=== PATIENT | male | born 1940 | race Caucasian/White ===

== ENCOUNTER 2020-05-04 11:10 | Outpatient (REF) | payer BC, SELFPAY ==
--- NOTE | 2020-05-04 11:18 | XR_ITS ---
EXAMINATION: BILATERAL HAND X-RAY CLINICAL INFORMATION: Arthritis COMPARISON: None TECHNIQUE: 3 views each hand FINDINGS: Right: No fracture or dislocation is seen. There is arthritis at the first LONGTERM joint with joint space narrowing and osteophyte formation. There is mild arthritis at the IP joints and first MCP joint with small osteophytes. There is soft tissue arterial calcification. Left: No fracture or dislocation is seen. There is arthritis at the first LONGTERM joint with joint space narrowing and osteophyte formation. There is slight subluxation at the first LONGTERM joint. There is slight extension at the IP joint of the thumb. There is mild arthritis at the IP joints and first MCP joint with small osteophytes. There is soft tissue arterial calcification. 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
--- NOTE | 2020-05-04 11:18 | XR_ITS ---
EXAMINATION: BILATERAL HAND X-RAY CLINICAL INFORMATION: Arthritis COMPARISON: None TECHNIQUE: 3 views each hand FINDINGS: Right: No fracture or dislocation is seen. There is arthritis at the first PRISON joint with joint space narrowing and osteophyte formation. There is mild arthritis at the IP joints and first MCP joint with small osteophytes. There is soft tissue arterial calcification. Left: No fracture or dislocation is seen. There is arthritis at the first PRISON joint with joint space narrowing and osteophyte formation. There is slight subluxation at the first PRISON joint. There is slight extension at the IP joint of the thumb. There is mild arthritis at the IP joints and first MCP joint with small osteophytes. There is soft tissue arterial calcification. XR/XR hand RT 2V IMPRESSION: Bilateral arthritis at the first PRISON joints, first MCP joints and IP joints, left greater than right.
== END 2020-05-04 11:11 | disposition home or self-care (01) ==
LOC: HO.XRAY 11:10
PROVIDERS: PCP Internal Medicine; Visit Provider Internal Medicine
DX: M19.042 Primary osteoarthritis, left hand (principal); M19.041 Primary osteoarthritis, right hand; M79.642 Pain in left hand; M79.641 Pain in right hand
CPT/HCPCS: 73120

== ENCOUNTER 2020-06-26 17:17 | Outpatient (REF) | payer BC, SELFPAY | END 2020-06-26 17:18 | disposition home or self-care (01) | LOC: HO.LAB 17:17 | PROVIDERS: Visit Provider Internal Medicine | DX: Z20.828 Contact with and (suspected) exposure to other viral communicable diseases (principal) | CPT/HCPCS: 36415; C9803; U0003 ==

== ENCOUNTER 2020-07-10 10:53 | Outpatient (REF) | payer BC, SELFPAY ==
[2020-07-10 14:18] LABS: MANUAL DIFF FLAG NO
[2020-07-10 14:26] LABS: Basophils Percent Auto 0.2 % (0-2); Eosinophils Percent Auto 0.1 % (0-4); Hematocrit 44.6 % (42-52); Hemoglobin 14.6 g/dl (14.0-18.0); Imm Gran Abs Auto 0.07 X10*3/uL (0.00-0.03); Imm Gran Pct Auto 0.7 % (0.0-0.4); Lymphocytes Percent Auto 9.2 % (20-40); Mean Corpuscular HGB Conc 32.7 g/dl (31.0-36.0); Mean Corpuscular Hemoglobin 30.4 pg (27.0-33.0); Mean Corpuscular Volume 92.7 fL (80-98); Mean Platelet Volume 9.4 fL (9.4-12.4); Monocytes Absolute Auto 0.6 X10*3/uL (0.1-1.2); Monocytes Percent Auto 5.8 % (2-11); Neutrophils Absolute Auto 8.7 X10*3/uL (2.0-8.3); Platelet Count 268 X10*3/uL (160-400); Red Blood Count 4.81 X10*6/uL (4.60-5.80); Red Cell Distribution Width 14.6 % (11.0-16.0); White Blood Count 10.4 X10*3/uL (4.8-10.8)
[2020-07-10 14:36] LABS: Estimated Average Glucose 123 mg/dL; Hemoglobin A1c % 5.9 %
[2020-07-10 14:55] LABS: Creatinine Urine 102.24 mg/dL; Microalbum/Creatinine Ratio Ur 5.8 ug/mg cr
[2020-07-10 14:58] LABS: Alanine Aminotransferase 20 U/L (0-40); Alkaline Phosphatase 56 U/L (39-117); Anion Gap 15 (12-20); Aspartate Amino Transferase 16 U/L (5-37); Bilirubin Total 0.5 mg/dL (0.0-1.0); Blood Urea Nitrogen 23 mg/dL (9-16); C Reactive Protein 0.14 mg/dL (< or = 0.50); Calcium 9.1 mg/dL (8.4-10.2); Carbon Dioxide 29 mmol/L (22-29); Chloride 101 mmol/L (96-108); Estimated Glomerular Filt Rate > 60; Glucose Random 66 mg/dL (60-115); Potassium 4.1 mmol/l (3.3-5.1); Sodium 141 mmol/L (135-145); Total Protein 6.4 g/dL (6.5-8.0)
[2020-07-10 15:22] LABS: Vitamin D 25-OH Total 37.8 ng/mL (>30)
== END 2020-07-10 10:54 | disposition home or self-care (01) ==
LOC: HO.10HDL 10:53
PROVIDERS: Visit Provider Internal Medicine
DX: R73.03 Prediabetes (principal); I10 Essential (primary) hypertension; K21.9 Gastro-esophageal reflux disease without esophagitis; E55.9 Vitamin D deficiency, unspecified
CPT/HCPCS: 36415; 80053; 82043; 82306; 83036; 85025; 86140

== ENCOUNTER 2020-09-10 09:58 | Outpatient (REF) | payer BC, SELFPAY ==
--- NOTE | ~2020-09-10 | XR_ITS ---
EXAMINATION: XR ANKLE, LEFT CLINICAL INFORMATION: Swelling COMPARISON: None TECHNIQUE: AP, lateral, and mortise views of the left ankle. FINDINGS: Bone alignment is normal. No acute fracture or dislocation is seen. There are soft tissue ossifications inferior to the medial and lateral malleoli suggestive of changes related to old trauma. The ankle mortise is normal. There is soft tissue arterial calcification. XR/XR ankle LT min 3V IMPRESSION: Well-corticated soft tissue ossifications inferior to the medial and lateral malleolus suggestive of changes related to old trauma. Soft tissue arterial calcification.
[2020-09-10 13:45] LABS: MANUAL DIFF FLAG NO
[2020-09-10 13:55] LABS: Basophils Percent Auto 0.3 % (0-2); Eosinophils Percent Auto 0.2 % (0-4); Hematocrit 45.4 % (42-52); Hemoglobin 14.9 g/dl (14.0-18.0); Imm Gran Abs Auto 0.06 X10*3/uL (0.00-0.03); Imm Gran Pct Auto 0.5 % (0.0-0.4); Lymphocytes Absolute Auto 1.2 X10*3/uL (1.2-4.9); Lymphocytes Percent Auto 10.3 % (20-40); Mean Corpuscular HGB Conc 32.8 g/dl (31.0-36.0); Mean Corpuscular Hemoglobin 30.6 pg (27.0-33.0); Mean Corpuscular Volume 93.2 fL (80-98); Mean Platelet Volume 9.3 fL (9.4-12.4); Monocytes Absolute Auto 0.6 X10*3/uL (0.1-1.2); Monocytes Percent Auto 5.5 % (2-11); Neutrophils Absolute Auto 9.5 X10*3/uL (2.0-8.3); Neutrophils Percent Auto 83.2 % (45-73); Platelet Count 273 X10*3/uL (160-400); Red Blood Count 4.87 X10*6/uL (4.60-5.80); Red Cell Distribution Width 13.8 % (11.0-16.0); White Blood Count 11.4 X10*3/uL (4.8-10.8)
[2020-09-10 14:28] LABS: Anion Gap 16 (12-20); Blood Urea Nitrogen 15 mg/dL (9-16); C Reactive Protein 0.17 mg/dL (< or = 0.50); Calcium 9.5 mg/dL (8.4-10.2); Carbon Dioxide 29 mmol/L (22-29); Chloride 102 mmol/L (96-108); Estimated Glomerular Filt Rate > 60; Glucose Random 80 mg/dL (60-115); Potassium 4.1 mmol/L (3.3-5.1); Sodium 143 mmol/L (135-145); Uric Acid 6.1 mg/dL (3.4-7.0)
== END 2020-09-10 09:59 | disposition home or self-care (01) ==
LOC: HO.10HDL 09:58
PROVIDERS: Visit Provider Internal Medicine
DX: M35.3 Polymyalgia rheumatica (principal); M25.472 Effusion, left ankle
CPT/HCPCS: 36415; 73610; 80048; 84550; 85025; 86140

== ENCOUNTER 2020-09-20 10:06 | Outpatient (REF) | payer BC, SELFPAY ==
--- NOTE | ~2020-09-20 | MR_ITS ---
EXAMINATION: MRI ANKLE WITHOUT CONTRAST, LEFT CLINICAL INFORMATION: Left Achilles pain. Rule out tear. COMPARISON: X-ray left ankle 09/10/2020 TECHNIQUE: MRI of the ankle without contrast is performed in a 1.5 Rufina high-field scanner. FINDINGS: ACHILLES TENDON: Partial-thickness deep surface tear of the proximal Achilles tendon involving a segment approximately 1.1 cm in craniocaudal length. There is a coronally oriented tear extending superiorly within the substance of the more proximal tendon into the myotendinous region. Associated edema in this region. BONE/JOINTS: Mild 1st and 2nd tarsometatarsal joint arthritis. Mild talocrural joint arthritis. Chronic osseous fragments adjacent to the medial and lateral malleoli. No evidence of acute fracture. Small posterior subtalar joint effusion. MUSCLES/TENDONS: Medial flexor, peroneal, extensor tendons are intact. LIGAMENTS: The ATFL is not well visualized, with findings suggesting high-grade partial tear. Sprain posterior talofibular ligament. Tibiofibular, calcaneofibular ligaments are intact. Partial tear deep fibers deltoid ligament. PLANTAR FASCIA: Intact. SINUS TARSI: Cystic foci, probable ganglion cysts. TARSAL TUNNEL: No mass lesion. SUBCUTANEOUS SOFT TISSUES: Subcutaneous edema present. MR/MR ankle LT wo con IMPRESSION: 1. Partial-thickness tear of the proximal Achilles tendon. Partial-thickness deep surface tear of the proximal tendon measuring 1.1 cm craniocaudal, with a coronally oriented partial tear extending more superiorly within the tendon in the myotendinous region. 2. Mild talocrural joint arthritis. Mild 1st and 2nd tarsometatarsal joint arthritis. 3. Partial tear of the anterior talofibular, deep fibers deltoid ligaments, probably chronic. 4. Probable ganglion cysts in the sinus tarsi.
== END 2020-09-20 10:07 | disposition home or self-care (01) ==
LOC: HO.MRI 10:06
PROVIDERS: PCP Internal Medicine; Visit Provider Internal Medicine
DX: M76.62 Achilles tendinitis, left leg (principal)
CPT/HCPCS: 73721

== ENCOUNTER → 2020-10-02 12:50 | Outpatient (BNVA) | payer BC, SELFPAY | PROVIDERS: PCP Internal Medicine; Visit Provider Orthopaedic Surgery ==

== ENCOUNTER 2020-11-26 10:35 | Outpatient (REF) | payer BC, SELFPAY ==
[2020-11-26 13:37] LABS: MANUAL DIFF FLAG NO
[2020-11-26 13:45] LABS: Basophils Percent Auto 0.3 % (0-2); Eosinophils Percent Auto 0.1 % (0-4); Hematocrit 44.6 % (42-52); Hemoglobin 14.5 g/dl (14.0-18.0); Imm Gran Abs Auto 0.07 X10*3/uL (0.00-0.03); Imm Gran Pct Auto 0.7 % (0.0-0.4); Lymphocytes Percent Auto 9.2 % (20-40); Mean Corpuscular HGB Conc 32.5 g/dl (31.0-36.0); Mean Corpuscular Hemoglobin 30.5 pg (27.0-33.0); Mean Corpuscular Volume 93.9 fL (80-98); Monocytes Absolute Auto 0.8 X10*3/uL (0.1-1.2); Monocytes Percent Auto 7.9 % (2-11); Neutrophils Absolute Auto 8.6 X10*3/uL (2.0-8.3); Neutrophils Percent Auto 81.8 % (45-73); Platelet Count 264 X10*3/uL (160-400); Red Blood Count 4.75 X10*6/uL (4.60-5.80); Red Cell Distribution Width 13.9 % (11.0-16.0); White Blood Count 10.5 X10*3/uL (4.8-10.8)
[2020-11-26 13:59] LABS: Alanine Aminotransferase 23 U/L (0-40); Albumin Level 4.1 g/dL (3.5-5.0); Alkaline Phosphatase 49 U/L (39-117); Anion Gap 14 (12-20); Aspartate Amino Transferase 19 U/L (5-37); Bilirubin Total 0.7 mg/dL (0.0-1.0); Blood Urea Nitrogen 14 mg/dL (9-16); C Reactive Protein 0.16 mg/dL (< or = 0.50); Calcium 9.6 mg/dL (8.4-10.2); Carbon Dioxide 28 mmol/L (22-29); Chloride 103 mmol/L (96-108); Estimated Glomerular Filt Rate > 60; Glucose Random 89 mg/dL (60-115); Potassium 4.2 mmol/L (3.3-5.1); Sodium 141 mmol/L (135-145); Total Protein 6.4 g/dL (6.5-8.0)
== END 2020-11-26 10:36 | disposition home or self-care (01) ==
LOC: HO.10HDL 10:35
PROVIDERS: Visit Provider Internal Medicine
DX: I10 Essential (primary) hypertension (principal); M35.3 Polymyalgia rheumatica
CPT/HCPCS: 36415; 80053; 85025; 86140

== ENCOUNTER 2020-12-03 06:28 | Day surgery (SDC) | payer BC, SELFPAY ==
[2020-11-28 12:56] VITALS: BMI 56.9
--- NOTE | 2020-11-29 11:57 | HO.ANESPROP2 ---
Documented by User: Suzanne Brunson 11/29/20 11:58 HPI - Anesthesia Eval Consult details Narrative: 80yo M for Colonoscopy Daily prednisone for PMR PMFSH Active Problems Active Problems: All Active Problems (Updated 11/28/20 @ 12:59 by Heaven Powell) Achilles tendinitis, left leg (Acute) Past Medical History Medical History Acid reflux High cholesterol History of BPH Hypertension Polymyalgia rheumatica Surgical History Surgical History H/O colonoscopy History of knee surgery History of prostate surgery Social History Social History (Updated 10/02/20 @ 13:04 by Sita Woods) Patient Tobacco Use Status: Tobacco use Unknown Use of substances other than those prescribed or required for medical reasons: No Advance Directives Information Provided: No Current occupational status: employed Current occupation: right handed/accounting worker Meds Allergies Allergy/AdvReac Type Severity Reaction Status Date / Time No Known Allergies Allergy Verified 10/02/20 13:00 Home Medications Medication Instructions Recorded Confirmed Last Taken Type aspirin 81 mg chewable tablet 81 mg PO DAILY 10/02/20 12/03/20 11/26/20 History famotidine 20 mg tablet 20 mg PO DAILY 10/02/20 11/28/20 Unknown History hydrochlorothiazide 12.5 mg capsule 12.5 mg PO DAILY 10/02/20 11/28/20 Unknown History olmesartan 1 tab PO DAILY 11/28/20 11/28/20 Unknown History pravastatin 1 tab PO DAILY 11/28/20 11/28/20 Unknown History prednisone 1 tab PO DAILY 11/28/20 11/28/20 Unknown History Exam Exam Date and Time: November 29, 2020 1157 Height,Weight and Vital Signs: Height 5 ft 7 in Weight 165 kg Pertinent Lab Results Pertinent Lab Results: Laboratory Tests 11/26/20 11/26/20 10:40 10:40 WBC 10.5 Hgb 14.5 Hct 44.6 Plt Count 264 Sodium 141 Potassium 4.2 Chloride 103 Carbon Dioxide 28 BUN 14 Creatinine 0.98 Assessment and Plan Assessment Anesthesia Assessment: Chart Reviewed Documented by User: Andressa Schuster 12/03/20 07:20 [facility] Past Medical History Medical History Acid reflux High cholesterol History of BPH Hypertension Polymyalgia rheumatica Surgical History Surgical History H/O colonoscopy History of knee surgery History of prostate surgery Social History Social History (Updated 10/02/20 @ 13:04 by Sita Woods) Patient Tobacco Use Status: Tobacco use Unknown Use of substances other than those prescribed or required for medical reasons: No Advance Directives Information Provided: No Current occupational status: employed Current occupation: right handed/accounting worker Meds Allergies Allergy/AdvReac Type Severity Reaction Status Date / Time No Known Allergies Allergy Verified 10/02/20 13:00 Home Medications Medication Instructions Recorded Confirmed Last Taken Type aspirin 81 mg chewable tablet 81 mg PO DAILY 10/02/20 12/03/20 11/26/20 History famotidine 20 mg tablet 20 mg PO DAILY 10/02/20 11/28/20 Unknown History hydrochlorothiazide 12.5 mg capsule 12.5 mg PO DAILY 10/02/20 11/28/20 Unknown History olmesartan 1 tab PO DAILY 11/28/20 11/28/20 Unknown History pravastatin 1 tab PO DAILY 11/28/20 11/28/20 Unknown History prednisone 1 tab PO DAILY 11/28/20 11/28/20 Unknown History Exam Airway Mallampati Class: III (Caps multiple katerally) TM Dist: >3cm Neck ROM: Full Heart: rrr Lungs: cta Assessment and Plan Assessment Anesthesia Assessment: Anesthesia Plan Discussed and Chart Reviewed Final Anesthetic Review NPO: Yes ASA Class: II Final Preanesthetic Review: No Changes in Pt Med Stat and Consent Obtained/Reviewed Patient Risk: Intermediate Procedure Risk: Intermediate Anesthetic Plan Anesthetic Plan: MAC: Disposition: Standard PACU
[2020-12-03 07:18] VITALS: BMI 24.9
[2020-12-03 07:19] VITALS: BP 163/90; PULSE 73; RESP 16; TEMP 36.2; O2SAT 95
[2020-12-03] MEDS: Lactated Ringers 1,000 ML 100 ML IVCONT (07:22)
[2020-12-03 08:33] VITALS: BP 144/84; PULSE 64; RESP 16; TEMP 36.1; O2SAT 96
--- NOTE | 2020-12-03 08:37 | P.BOP_ITS ---
Brief Operative Note Date of Service: 12/03/20 Pre-op diagnosis: Screening Post-op diagnosis: other (Colon polyp, Diverticulosis) Procedure: Colonoscopy to the cecum with biopsy and removal of polyp Surgeon: Anthony Strickland Anesthesia: MAC Was an Partnership Development Manager used for this Procedure?: No Estimated blood loss (mL): 4.0 Pathology: other (A. Cecal polyp) Condition: stable Disposition: PACU
[2020-12-03 08:45] VITALS: BP 146/85; PULSE 67; RESP 16; O2SAT 95
[2020-12-03 09:00] VITALS: BP 147/87; PULSE 60; RESP 16; TEMP 36.1; O2SAT 96
--- NOTE | 2020-12-07 10:56 | OP_ITS ---
SURGEON: Anthony Strickland MD INDICATIONS: The patient presents for evaluation of personal history of tubular adenoma of the colon and colorectal cancer screening. Full consent has been obtained from him for this, including risks of bleeding and perforation. PREOPERATIVE DIAGNOSIS: POSTOPERATIVE DIAGNOSIS: PROCEDURE PERFORMED: Colonoscopy to cecum with biopsy and removal of polyp. ESTIMATED BLOOD LOSS: COMPLICATIONS: ANESTHESIA: Monitored anesthesia care. ASSISTANTS: SPECIMENS: PREOPERATIVE DIAGNOSES: Colorectal cancer screening and personal history of tubular adenoma of the colon. POSTOPERATIVE DIAGNOSES: Colorectal cancer screening and personal history of tubular adenoma of the colon, small colon polyp, diverticulosis, and minimal internal hemorrhoids. DESCRIPTION OF PROCEDURE: The patient was placed in the left lateral decubitus position. The digital rectal exam revealed no abnormalities. The Olympus video pediatric colonoscope was entered into the rectum and advanced easily to the cecum. Once in the cecum, I did identify normal-appearing cecal pouch other than a 3 mm polyp in the cecum, which was biopsied and completely removed with cold biopsy forceps. The remainder of the cecum including the appendiceal orifice was visualized and appeared normal. The ileocecal valve appeared normal. The scope was slowly withdrawn assessing all mucosal surfaces carefully. Preparation was excellent. I did not visualize any sign of other polyps, colitis, nor angiodysplasia. There were various portions of the colonic mucosa that had some superficial irritation consistent with that from the prep, but this did not appear to represent colitis. There was a moderate amount of sigmoid diverticulosis. In the rectum, scope was retroflexed visualizing normal rectal mucosa and no pathology. The scope was straightened out and withdrawn from the patient. He tolerated procedure well and was returned to the recovery area in stable condition. IMPRESSION: 1. Small colon polyp, status post biopsy and removal. 2. Diverticulosis. PLAN: The results of the biopsy will be checked. Given these minimal findings and his age, I do not think he will need any further colonoscopies in the future. He will see me on a p.r.n. basis otherwise. Anthony Strickland MD RMLilliam/ALL / [phone]
== END 2020-12-03 09:46 | disposition home or self-care (01) ==
PROVIDERS: PCP Internal Medicine; Visit Provider Internal Medicine
PROC: 0DJD8ZZ Inspection of Lower Intestinal Tract, Via Natural or Artificial Opening Endoscopic (ICD-10-PCS; CPT 45378; principal; 2020-12-03 07:30)
DX: Z12.11 Encounter for screening for malignant neoplasm of colon (principal); D12.0 Benign neoplasm of cecum; K57.30 Diverticulosis of large intestine without perforation or abscess without bleeding; Z86.010 Personal history of colon polyps; Z80.0 Family history of malignant neoplasm of digestive organs; I10 Essential (primary) hypertension; M35.3 Polymyalgia rheumatica; Z79.52 Long term (current) use of systemic steroids; Z79.82 Long term (current) use of aspirin; Z79.899 Other long term (current) drug therapy
CPT/HCPCS: 45380; 88305

== ENCOUNTER 2021-01-17 07:41 | Outpatient (REF) | payer BC, SELFPAY ==
[2021-01-17 10:27] LABS: MANUAL DIFF FLAG NO
[2021-01-17 10:43] LABS: Basophils Percent Auto 0.5 % (0-2); Eosinophils Absolute Auto 0.1 X10*3/uL (0.0-0.4); Eosinophils Percent Auto 0.6 % (0-4); Hematocrit 43.9 % (42-52); Hemoglobin 14.3 g/dl (14.0-18.0); Imm Gran Abs Auto 0.04 X10*3/uL (0.00-0.03); Imm Gran Pct Auto 0.5 % (0.0-0.4); Lymphocytes Absolute Auto 1.7 X10*3/uL (1.2-4.9); Lymphocytes Percent Auto 20.1 % (20-40); Mean Corpuscular HGB Conc 32.6 g/dl (31.0-36.0); Mean Corpuscular Hemoglobin 30.7 pg (27.0-33.0); Mean Corpuscular Volume 94.2 fL (80-98); Mean Platelet Volume 9.2 fL (9.4-12.4); Monocytes Absolute Auto 0.8 X10*3/uL (0.1-1.2); Monocytes Percent Auto 9.4 % (2-11); Neutrophils Absolute Auto 5.9 X10*3/uL (2.0-8.3); Neutrophils Percent Auto 68.9 % (45-73); Platelet Count 265 X10*3/uL (160-400); Red Blood Count 4.66 X10*6/uL (4.60-5.80); White Blood Count 8.5 X10*3/uL (4.8-10.8)
[2021-01-17 10:54] LABS: Alanine Aminotransferase 23 U/L (0-40); Alkaline Phosphatase 58 U/L (39-117); Anion Gap 14 (12-20); Aspartate Amino Transferase 19 U/L (5-37); Bilirubin Total 0.7 mg/dL (0.0-1.0); Blood Urea Nitrogen 17 mg/dL (9-16); Calcium 9.2 mg/dL (8.4-10.2); Carbon Dioxide 29 mmol/L (22-29); Chloride 104 mmol/L (96-108); Cholesterol 220 mg/dL; Estimated Glomerular Filt Rate > 60; Glucose Fasting 84 mg/dL (60-99); HDL Cholesterol 86 mg/dL; LDL Cholesterol Calculated 114 mg/dl; Potassium 4.2 mmol/L (3.3-5.1); Sodium 143 mmol/L (135-145); Total Protein 6.2 g/dL (6.5-8.0); Triglycerides 104 mg/dL
[2021-01-17 11:15] LABS: Prostate Specific Antigen Scr 1.83 ng/mL (<0.05-4.0)
== END 2021-01-17 07:42 | disposition home or self-care (01) ==
LOC: HO.10HDL 07:41
PROVIDERS: PCP Internal Medicine; Visit Provider Internal Medicine
DX: Z12.5 Encounter for screening for malignant neoplasm of prostate (principal); I10 Essential (primary) hypertension; E78.00 Pure hypercholesterolemia, unspecified; K21.9 Gastro-esophageal reflux disease without esophagitis; M35.3 Polymyalgia rheumatica
CPT/HCPCS: 36415; 80053; 80061; 84153; 85025

== ENCOUNTER 2021-01-18 11:00 | Outpatient (RCR) | payer BC, SELFPAY ==
--- NOTE | 2020-12-14 14:36 | MHC.PT.EP ---
[facility] [place] Office [place] Office [place] Office [address] [phone] F: [phone] F: [phone] F: [phone] F: [phone] Physical Therapy Plan of Care Date of Evaluation: Date of Surgery: N/A Diagnosis: L achilles tendinitis Assessment: Pt is a 80yo M who had pain in L achilles in August, had MRI 09/20/20 which revealed a partial tear. He was seen by Ortho who recommended ROM, soft tissue work and strengthening. He presents today (about 12 weeks post MRI) without pain, however has current impairments in ROM, strength, muscle length, balance, and proper body mechanics. He is limited functionally by prolonged ambulation, squatting, ascending/descending flight of stairs and golf. He is a good candidate for skilled PT services to improve strength, endurance, and to prevent risk of re-injury. Frequency and Duration: The patient will be seen 2x/week, 3 weeks Short Term Goals: Pt will be I with HEP to promote self management of symptoms Pt will improve L DF to 5 degrees to improve gait mechanics Alf Goals: Pt will achieve full strength and ROM Pt will ascend/descend 1 flight of stairs with reciprocal gait pattern without pain Treatment Plan: Modalities to reduce pain, spasms and effusion. Manual therapy to restore motion and function. Therapeutic exercise to improve strength and flexibility. Neuromuscular re-education for posture and balance. Therapeutic activities to return to functional activities of daily living. Electronically signed by: Brittanie Kumar, PT, DPT Please sign and return to therapist. Thank you for your referral.
--- NOTE | 2021-01-31 15:10 | MHC.PT.DC ---
[facility] [place] Office [place] Office [place] Office [address] [phone] F: [phone] F: [phone] F: [phone] F: [phone] Physical Therapy Discharge Report Diagnosis: L achilles tendinitis Date of Surgery: N/A Date of Evaluation: 12/14/20 Date of Discharge: Treatments to Date: 10 Cancellations to Date: 1 No Shows to Date: Discharge Status: Achieved Goals Improved Function Independent with HEP Discharge Summary: Pt's last attended appointment was 01/18/21 and he cancelled the following appointment as his pain has resolved and he has returned to his previous level of functional activities. Communicated with pt on the phone today, 01/31/21, and pt reports he continues to do well without pain. Pt is being D/C from skilled PT services at this time. Electronically signed by: Brittanie Kumar, PT, DPT Please sign and return to therapist. Thank you for your referral.
== END 2021-01-31 15:10 | disposition home or self-care (01) ==
LOC: HO.PT 11:00
PROVIDERS: PCP Internal Medicine; Visit Provider Orthopaedic Surgery
DX: M76.62 Achilles tendinitis, left leg (principal)
CPT/HCPCS: 97035; 97110; 97112; 97140; 97161; 97530

== ENCOUNTER → 2021-03-21 14:56 | Outpatient (BNVA) | payer BC, SELFPAY | PROVIDERS: PCP Internal Medicine; Visit Provider Physician Assistant ==

== ENCOUNTER 2021-05-01 13:52 | Outpatient (REF) | payer BC, SELFPAY ==
[2021-05-01 14:48] LABS: Influenza A PCR NEGATIVE (Negative); Influenza B PCR NEGATIVE (Negative); Resp Syncy Virus RNA Qual PCR NEGATIVE (Negative); SARS COV2 PCR INHOUSE NEGATIVE (Negative)
== END 2021-05-01 13:53 | disposition home or self-care (01) ==
LOC: HO.LNP 13:52
PROVIDERS: Visit Provider Internal Medicine
DX: R05.9 Cough, unspecified (principal); R09.89 Other specified symptoms and signs involving the circulatory and respiratory systems; J02.9 Acute pharyngitis, unspecified; Z20.822 Contact with and (suspected) exposure to COVID-19
CPT/HCPCS: 0241U

== ENCOUNTER 2021-05-02 10:55 | Outpatient (REF) | payer BC, SELFPAY ==
--- NOTE | ~2021-05-02 | XR_ITS ---
EXAMINATION: XR CHEST CLINICAL INFORMATION: Cough. Congestion. COMPARISON: Previous chest x-ray September 2014 TECHNIQUE: Two views of the chest were obtained. FINDINGS: The cardiac and mediastinal contours are stable. The lungs are clear. There is no pleural effusion or pneumothorax. There is slight elevation of the right hemidiaphragm. There are mild degenerative changes of the spine. XR/XR chest 2V IMPRESSION: No evidence for acute disease in the chest.
== END 2021-05-02 10:56 | disposition home or self-care (01) ==
LOC: HO.XRAY 10:55
PROVIDERS: PCP Internal Medicine; Visit Provider Internal Medicine
DX: R05.9 Cough, unspecified (principal); R09.89 Other specified symptoms and signs involving the circulatory and respiratory systems
CPT/HCPCS: 71046

== ENCOUNTER 2021-09-04 10:09 | Outpatient (REF) | payer BC, SELFPAY ==
--- NOTE | ~2021-09-04 | MR_ITS ---
EXAMINATION: MR KNEE WITHOUT CONTRAST, LEFT CLINICAL INFORMATION: Knee pain. History meniscus tear.. Patient reports meniscal repair 23 years ago. COMPARISON: None TECHNIQUE: MRI of the knee without contrast was performed using routine sequences on a high-field scanner. FINDINGS: MENISCI: Medial Meniscus: Small diminutive posterior horn and body. This could represent postsurgical result, age indeterminate tearing, or a combination of these. Lateral Meniscus: Degenerative tearing of the posterior root/central posterior horn. LIGAMENTS: Cruciate: The ACL is not visualized, suggestive of chronic full-thickness tear. Increased T2 signal in the PCL, from mucoid degeneration plus/minus sprain/partial tear. Collateral: Intact EXTENSOR MECHANISM: Intact ARTICULAR CARTILAGE/BONE: Patellofemoral Compartment: Marginal osteophytes. Central trochlear osteophyte with overlying cartilage thinning. Cartilage thinning in the medial trochlea. Medial Compartment: High-grade/full-thickness cartilage loss in the weightbearing compartment, subchondral edema. Joint space loss. Marginal osteophytes. Degenerative cyst/edema underlying the tibial spines. Lateral Compartment: Full-thickness cartilage loss in the medial aspect of the lateral femoral condyle and the posterior medial tibial plateau with subchondral edema. Marginal osteophytes. JOINT FLUID AND BURSAE: Small effusion. Small Bartlett's cyst with loose bodies and synovitis. Mild medial gastrocnemius tendinosis. MR/MR knee LT wo con IMPRESSION: 1. Abnormal morphology of the posterior horn and body of the medial meniscus, could reflect postsurgical result, age-indeterminate irregular tearing with resulting diminutive meniscal tissue, or a combination of these. Correlate with surgical history. 2. Degenerative tearing of the posterior root/central posterior horn of the lateral meniscus. 3. ACL full-thickness tear, likely chronic. 4. Mucoid degeneration plus/minus sprain/partial tear PCL. 5. Severe medial compartment, mild to moderate lateral and patellofemoral compartment arthritis. 6. Small effusion. Small Bartlett's cyst with loose bodies and synovitis. 7. Mild proximal medial gastrocnemius tendinosis.
== END 2021-09-04 10:10 | disposition home or self-care (01) ==
LOC: HO.MRI 10:09
PROVIDERS: PCP Internal Medicine; Visit Provider Internal Medicine
DX: M25.562 Pain in left knee (principal); M23.202 Derangement of unspecified lateral meniscus due to old tear or injury, unspecified knee
CPT/HCPCS: 73721

== ENCOUNTER 2021-12-25 07:32 | Outpatient (REF) | payer BC, SELFPAY ==
[2021-12-25 10:36] LABS: MANUAL DIFF FLAG NO
[2021-12-25 10:44] LABS: Basophils Percent Auto 0.5 % (0-2); Eosinophils Percent Auto 0.5 % (0-4); Hematocrit 44.2 % (42.0-52.0); Hemoglobin 14.9 g/dl (14.0-18.0); Imm Gran Abs Auto 0.04 X10*3/uL (0.00-0.03); Imm Gran Pct Auto 0.5 % (0.0-0.4); Lymphocytes Absolute Auto 1.9 X10*3/uL (1.2-4.9); Lymphocytes Percent Auto 25.6 % (20-40); Mean Corpuscular HGB Conc 33.7 g/dl (31.0-36.0); Mean Corpuscular Hemoglobin 31.4 pg (27.0-33.0); Mean Corpuscular Volume 93.1 fL (80.0-98.0); Monocytes Absolute Auto 0.8 X10*3/uL (0.1-1.2); Monocytes Percent Auto 10.9 % (2-11); Neutrophils Absolute Auto 4.7 x10*3/uL (2.0-8.3); Platelet Count 258 X10*3/uL (160-400); Red Blood Count 4.75 X10*6/uL (4.60-5.80); Red Cell Distribution Width 13.8 % (11.0-16.0); White Blood Count 7.5 X10*3/uL (4.8-10.8)
[2021-12-25 10:47] LABS: Appearance Urine CLEAR; Color Urine YELLOW; Glucose Urine UA NEG (NEG); Leukocyte Esterase Urine NEG (NEG); Nitrite Urine NEG (NEG); Urine Blood NEG (NEG); Urine Ketones NEG (NEG); Urine Protein NEG (NEG-TRACE)
[2021-12-25 11:03] LABS: Alanine Aminotransferase 19 U/L (0-40); Albumin Level 3.9 g/dL (3.5-5.0); Alkaline Phosphatase 55 U/L (39-117); Anion Gap 12 (12-20); Aspartate Amino Transferase 19 U/L (5-37); Bilirubin Total 0.7 mg/dL (0.0-1.0); Blood Urea Nitrogen 13 mg/dL (9-16); C Reactive Protein 0.12 mg/dL (< or = 0.50); Calcium 9.2 mg/dL (8.4-10.2); Carbon Dioxide 31 mmol/L (22-29); Chloride 102 mmol/L (96-108); Cholesterol 212 mg/dL; Estimated Glomerular Filt Rate > 60; Glucose Fasting 79 mg/dL (60-99); HDL Cholesterol 91 mg/dL; LDL Cholesterol Calculated 103 mg/dl; Potassium 3.9 mmol/L (3.3-5.1); Sodium 141 mmol/L (135-145); Total Protein 6.1 g/dL (6.5-8.0); Triglycerides 90 mg/dL
[2021-12-25 11:13] LABS: Prostate Specific Antigen Scr 2.02 ng/mL (<0.05-4.0)
== END 2021-12-25 07:33 | disposition home or self-care (01) ==
LOC: HO.10HDL 07:32
PROVIDERS: Visit Provider Internal Medicine
DX: I10 Essential (primary) hypertension (principal); E78.00 Pure hypercholesterolemia, unspecified; M35.3 Polymyalgia rheumatica; K21.9 Gastro-esophageal reflux disease without esophagitis; R35.1 Nocturia; Z12.5 Encounter for screening for malignant neoplasm of prostate
CPT/HCPCS: 36415; 80053; 80061; 81003; 84153; 85025; 86140

== ENCOUNTER 2022-04-10 09:47 | Outpatient (REF) | payer BC, SELFPAY ==
--- NOTE | ~2022-04-10 | XR_ITS ---
EXAMINATION: XR TEMPOROMANDIBULAR JOINT, BILATERAL CLINICAL INFORMATION: Left jaw pain COMPARISON: None TECHNIQUE: 5 views of the temporomandibular joints including bilateral open and closed mouth views FINDINGS: No fracture or dislocation. Symmetric movement of the temporomandibular joints when opening the mouth. Normal joint spaces. Visualized paranasal sinuses are clear. There are degenerative changes of the visualized cervical spine. XR/XR TMJ BI IMPRESSION: Normal-appearing temporomandibular joints.
== END 2022-04-10 09:48 | disposition home or self-care (01) ==
LOC: HO.XRAY 09:47
PROVIDERS: PCP Internal Medicine; Visit Provider Internal Medicine
DX: R68.84 Jaw pain (principal)
CPT/HCPCS: 70330

== ENCOUNTER 2023-02-11 07:42 | Outpatient (REF) | payer BC, SELFPAY ==
[2023-02-11 10:15] LABS: MANUAL DIFF FLAG NO
[2023-02-11 10:19] LABS: Appearance Urine Clear; Color Urine Yellow; Glucose Urine UA Negative (Negative); Leukocyte Esterase Urine Negative (Negative); Nitrite Urine Negative (Negative); Urine Blood Negative (Negative); Urine Ketones Negative (Negative); Urine Protein Negative (Neg-Trace)
[2023-02-11 10:21] LABS: Basophils Percent Auto 0.5 % (0-2); Eosinophils Absolute Auto 0.1 X10*3/uL (0.0-0.4); Eosinophils Percent Auto 0.8 % (0-4); Hematocrit 46.8 % (42.0-52.0); Hemoglobin 15.7 g/dl (14.0-18.0); Imm Gran Abs Auto 0.04 X10*3/uL (0.00-0.03); Imm Gran Pct Auto 0.6 % (0.0-0.4); Lymphocytes Absolute Auto 1.7 X10*3/uL (1.2-4.9); Mean Corpuscular HGB Conc 33.5 g/dl (31.0-36.0); Mean Corpuscular Hemoglobin 31.2 pg (27.0-33.0); Monocytes Absolute Auto 0.8 X10*3/uL (0.1-1.2); Monocytes Percent Auto 12.2 % (2-11); Neutrophils Absolute Auto 3.8 x10*3/uL (2.0-8.3); Neutrophils Percent Auto 58.9 % (45-73); Platelet Count 261 X10*3/uL (160-400); Red Blood Count 5.03 X10*6/uL (4.60-5.80); Red Cell Distribution Width 13.9 % (11.0-16.0); White Blood Count 6.4 X10*3/uL (4.8-10.8)
[2023-02-11 10:41] LABS: Alanine Aminotransferase 19 U/L (0-40); Albumin Level 3.9 g/dL (3.5-5.0); Alkaline Phosphatase 60 U/L (39-117); Anion Gap 11 (12-20); Aspartate Amino Transferase 23 U/L (5-37); Bilirubin Total 0.7 mg/dL (0.0-1.0); Blood Urea Nitrogen 13 mg/dL (9-16); Calcium 9.6 mg/dL (8.4-10.2); Carbon Dioxide 31 mmol/L (22-29); Chloride 103 mmol/L (96-108); Cholesterol 219 mg/dL (<200); Estimated Glomerular Filt Rate > 60; Glucose Fasting 87 mg/dL (60-99); HDL Cholesterol 97 mg/dL (>40); LDL Cholesterol Calculated 106 mg/dL (<100); Potassium 4.1 mmol/L (3.3-5.1); Sodium 141 mmol/L (135-145); Total Protein 6.6 g/dL (6.5-8.0); Triglycerides 82 mg/dL (<150)
[2023-02-11 11:03] LABS: Prostate Specific Antigen Scr 1.98 ng/mL (<0.05-4.0)
== END 2023-02-11 07:43 | disposition home or self-care (01) ==
LOC: HO.10HDL 07:42
PROVIDERS: Visit Provider Internal Medicine
DX: Z12.5 Encounter for screening for malignant neoplasm of prostate (principal); I10 Essential (primary) hypertension; R35.1 Nocturia; E78.00 Pure hypercholesterolemia, unspecified; M19.90 Unspecified osteoarthritis, unspecified site
CPT/HCPCS: 36415; 80053; 80061; 81003; 84153; 85025

== ENCOUNTER 2023-05-08 10:07 | Outpatient (REF) | payer BC, SELFPAY ==
[2023-05-08 10:38] LABS: MANUAL DIFF FLAG NO
[2023-05-08 10:41] LABS: Basophils Percent Auto 0.4 % (0-2); Eosinophils Percent Auto 0.1 % (0-4); Hematocrit 46.4 % (42.0-52.0); Hemoglobin 15.3 g/dl (14.0-18.0); Imm Gran Abs Auto 0.04 X10*3/uL (0.00-0.03); Imm Gran Pct Auto 0.5 % (0.0-0.4); Lymphocytes Absolute Auto 1.1 X10*3/uL (1.2-4.9); Lymphocytes Percent Auto 13.3 % (20-40); Mean Corpuscular Hemoglobin 31.2 pg (27.0-33.0); Mean Corpuscular Volume 94.5 fL (80.0-98.0); Mean Platelet Volume 8.6 fL (9.4-12.4); Monocytes Absolute Auto 0.8 X10*3/uL (0.1-1.2); Monocytes Percent Auto 9.3 % (2-11); Neutrophils Absolute Auto 6.2 x10*3/uL (2.0-8.3); Neutrophils Percent Auto 76.4 % (45-73); Platelet Count 255 X10*3/uL (160-400); Red Blood Count 4.91 X10*6/uL (4.60-5.80); Red Cell Distribution Width 13.8 % (11.0-16.0); White Blood Count 8.1 X10*3/uL (4.8-10.8)
[2023-05-08 10:55] LABS: Anion Gap 11 (12-20); Blood Urea Nitrogen 17 mg/dL (9-16); Calcium 9.4 mg/dL (8.4-10.2); Carbon Dioxide 29 mmol/L (22-29); Chloride 103 mmol/L (96-108); Estimated Glomerular Filt Rate > 60; Glucose Random 83 mg/dL (60-115); Sodium 139 mmol/L (135-145)
== END 2023-05-08 10:08 | disposition home or self-care (01) ==
LOC: HO.10HDL 10:07
PROVIDERS: Visit Provider Internal Medicine
DX: Z01.818 Encounter for other preprocedural examination (principal); I10 Essential (primary) hypertension; M35.3 Polymyalgia rheumatica
CPT/HCPCS: 36415; 80048; 85025

== ENCOUNTER 2023-10-30 10:07 | Outpatient (REF) | payer BC, SELFPAY ==
[2023-10-30 10:53] LABS: MANUAL DIFF FLAG NO
[2023-10-30 11:07] LABS: Basophils Percent Auto 0.4 % (0-2); Eosinophils Percent Auto 0.3 % (0-4); Hemoglobin 15.1 g/dl (14.0-18.0); Imm Gran Abs Auto 0.04 X10*3/uL (0.00-0.03); Imm Gran Pct Auto 0.5 % (0.0-0.4); Lymphocytes Percent Auto 13.1 % (20-40); Mean Corpuscular HGB Conc 33.6 g/dl (31.0-36.0); Mean Corpuscular Hemoglobin 31.1 pg (27.0-33.0); Mean Corpuscular Volume 92.8 fL (80.0-98.0); Mean Platelet Volume 8.8 fL (9.4-12.4); Monocytes Absolute Auto 0.7 X10*3/uL (0.1-1.2); Neutrophils Absolute Auto 6.1 x10*3/uL (2.0-8.3); Neutrophils Percent Auto 76.7 % (45-73); Platelet Count 250 X10*3/uL (160-400); Red Blood Count 4.85 X10*6/uL (4.60-5.80); Red Cell Distribution Width 13.8 % (11.0-16.0); White Blood Count 7.9 X10*3/uL (4.8-10.8)
[2023-10-30 11:58] LABS: Alanine Aminotransferase 19 U/L (0-40); Albumin Level 3.9 g/dL (3.5-5.0); Alkaline Phosphatase 65 U/L (39-117); Anion Gap 14 (12-20); Aspartate Amino Transferase 21 U/L (5-37); Bilirubin Total 0.4 mg/dL (0.0-1.0); Blood Urea Nitrogen 15 mg/dL (9-16); C Reactive Protein 0.29 mg/dL (< or = 0.50); Calcium 9.6 mg/dL (8.4-10.2); Carbon Dioxide 27 mmol/L (22-29); Chloride 103 mmol/L (96-108); Estimated Glomerular Filt Rate > 60; Glucose Random 87 mg/dL (60-115); Potassium 3.9 mmol/L (3.3-5.1); Sodium 140 mmol/L (135-145); Total Protein 6.5 g/dL (6.5-8.0)
[2023-10-30 11:59] LABS: Erythrocyte Sedimentation Rate 6 MM/HR (0-15)
== END 2023-10-30 10:08 | disposition home or self-care (01) ==
LOC: HO.10HDL 10:07
PROVIDERS: Visit Provider Internal Medicine
DX: I10 Essential (primary) hypertension (principal); K21.9 Gastro-esophageal reflux disease without esophagitis; E78.00 Pure hypercholesterolemia, unspecified; M35.3 Polymyalgia rheumatica
CPT/HCPCS: 36415; 80053; 85025; 85652; 86140

== ENCOUNTER 2024-01-15 08:23 | Outpatient (REF) | payer BC, SELFPAY | END 2024-01-15 08:24 | disposition home or self-care (01) | LOC: HO.SH 08:23 | PROVIDERS: Visit Provider Internal Medicine | DX: Z01.118 Encounter for examination of ears and hearing with other abnormal findings (principal); H90.3 Sensorineural hearing loss, bilateral | CPT/HCPCS: 92557 ==

== ENCOUNTER 2024-01-15 10:03 | Outpatient (REF) | payer BC, SELFPAY ==
--- NOTE | 2024-01-15 13:13 | MHC.AU.MED ---
Medical Clearance for Hearing Instrumentation Date: 01/15/24 Patient Name: Geo Razo Date of : 1940 Primary Care Provider: Davis Cuevas MD We have seen your patient on 01/15/24 and have determined that they are a candidate for amplification (See accompanying report). Specifically, they would benefit from: Hearing aid use in both ears There is a statute that addresses Medical Evaluation Requirements prior to fitting a patient with a hearing aid. According to [place] statute [facility] CMR:6.03(1), (a) General. Except as provided in 265 CMR 6.03(1)(b), a physical sciences professor shall not sell a hearing aid unless the prospective user has presented to the physical sciences professor a written statement signed by a licensed physician that states that the patient's hearing loss has been medically evaluated and the patient may be considered a candidate for a hearing aid. The medical evaluation must have taken place within the preceding six months. Please note: Due to the [place] Statute referenced above, we cannot accept a signature other than that of a licensed physician. DIRECTOR CAMP and [place] signatures cannot be accepted. I am in agreement with the above recommendation. There is no medical contraindication for hearing instrumentation. Physician Signature Date Physician Name (Printed)
--- NOTE | 2024-01-15 15:04 | MHC.AU.HA1 ---
Hearing Aid Evaluation Date of Visit: 01/15/24 Historical Information: Description of Hearing: Within normal sloping to moderately-severe sensorineural hearing loss, bilaterally Summary: Geo is ready to pursue hearing aids due to increasing hearing difficulties. He has noticed difficulty following conversations in group settings, especially with multiple people talking or if the speaker is wearing a mask. He also noted difficulty following the homily at [employer] as well as hearing his partner on the golf course. Although Geo is hesitant towards hearing aids, he knows he needs them and is willing to trail them to help ease some of his communication difficulties. Discussed importance of daily, consistent use and acclimatization period with hearing aids. Initially Geo wanted custom WILSON so as not to have any portion behind his ear. However, after some explanation of occlusion affect with normal low frequency hearing, Geo opted to trial rechargeable RITE with dome to start. *[facility] Federal insurance - will need to confirm benefit and submit prior authorization after receiving medical clearance from PCP. Hearing Aid Prescription: Based on the individual?s shared listening needs, communication environments, dexterity, desire for connectivity, and personal preferences, the following prescription for amplification has been made: Right ear: Make, Model, Color: Phonak Audeo L70-RT Color: Silver Cazares Battery Size: Rechargeable Merchandising Consultant/Slim Tube: 2M Type of Earmold/Dome/CShell/SlimTip: Medium vented dome Left ear: Left ear prescription to be same as Right Hearing Aid above: Make, Model, Color: Phonak Audeo L70-RT Color: Silver Cazares Battery Size: Rechargeable Merchandising Consultant/Slim Tube: 2M Type of Earmold/Dome/CShell/SlimTip: Medium vented dome Accessories/Assistive Technology: Fish And Wildlife Technician Plan of Care: Patient wishes to purchase hearing aids as prescribed Action Taken/Action Needed: Prior authorization to be requested. Medical Clearance to be requested from PCP/ENT. Hearing Instrument Fitting to be scheduled when materials arrive Primary Diagnosis: H90.3 Bilateral Sensorineural Hearing Loss Signature: Provider: Callie Jackson, CCC-A
== END 2024-01-15 10:04 | disposition home or self-care (01) ==
LOC: HO.HAP 10:03
PROVIDERS: Visit Provider Internal Medicine
DX: Z46.1 Encounter for fitting and adjustment of hearing aid (principal); H90.3 Sensorineural hearing loss, bilateral
CPT/HCPCS: 92590

== ENCOUNTER 2024-02-18 09:55 | Outpatient (REF) | payer BC, SELFPAY ==
--- NOTE | ~2024-02-18 | XR_ITS ---
EXAMINATION: XR ELBOW, RIGHT CLINICAL INFORMATION: Elbow pain. Injury while hitting a golf ball with bruising COMPARISON: None available. TECHNIQUE: AP, lateral, and oblique views of the right elbow. FINDINGS: The bones and soft tissues are normal aside from marked vascular calcification. No fracture or joint effusion. Alignment is anatomic. Joint spaces are maintained. XR/XR elbow RT 2V IMPRESSION: No evidence of an acute injury. Electronically signed by: Diony Pollard MD 02/18/2024 12:29 PM EDT
== END 2024-02-18 09:56 | disposition home or self-care (01) ==
LOC: HO.XRAY 09:55
PROVIDERS: PCP Internal Medicine; Visit Provider Internal Medicine
DX: S59.901D Unspecified injury of right elbow, subsequent encounter (principal)
CPT/HCPCS: 73070

== ENCOUNTER 2024-02-19 07:33 | Outpatient (REF) | payer BC, SELFPAY ==
[2024-02-19 10:54] LABS: MANUAL DIFF FLAG NO
[2024-02-19 11:06] LABS: Alanine Aminotransferase 18 U/L (0-40); Albumin Level 3.8 g/dL (3.5-5.0); Alkaline Phosphatase 62 U/L (39-117); Anion Gap 9 (12-20); Aspartate Amino Transferase 21 U/L (5-37); Bilirubin Total 0.5 mg/dL (0.0-1.0); Blood Urea Nitrogen 18 mg/dL (9-16); C Reactive Protein 0.16 mg/dL (< or = 0.50); Calcium 9.5 mg/dL (8.4-10.2); Carbon Dioxide 32 mmol/L (22-29); Chloride 104 mmol/L (96-108); Cholesterol 221 mg/dL (<200); Estimated Glomerular Filt Rate > 60; Glucose Fasting 87 mg/dL (60-99); HDL Cholesterol 99 mg/dL (>40); LDL Cholesterol Calculated 110 mg/dL (<100); Potassium 4.2 mmol/L (3.3-5.1); Sodium 141 mmol/L (135-145); Total Protein 6.3 g/dL (6.5-8.0); Triglycerides 60 mg/dL (<150)
[2024-02-19 11:06] LABS: Basophils Absolute Auto 0.1 X10*3/uL (0.0-0.2); Basophils Percent Auto 0.6 % (0-2); Eosinophils Absolute Auto 0.1 X10*3/uL (0.0-0.4); Eosinophils Percent Auto 0.9 % (0-4); Hematocrit 44.9 % (42.0-52.0); Hemoglobin 14.9 g/dl (14.0-18.0); Imm Gran Abs Auto 0.06 X10*3/uL (0.00-0.03); Imm Gran Pct Auto 0.7 % (0.0-0.4); Lymphocytes Absolute Auto 1.7 X10*3/uL (1.2-4.9); Lymphocytes Percent Auto 20.3 % (20-40); Mean Corpuscular HGB Conc 33.2 g/dl (31.0-36.0); Mean Corpuscular Volume 93.3 fL (80.0-98.0); Mean Platelet Volume 8.8 fL (9.4-12.4); Monocytes Percent Auto 11.9 % (2-11); Neutrophils Absolute Auto 5.4 x10*3/uL (2.0-8.3); Neutrophils Percent Auto 65.6 % (45-73); Platelet Count 251 X10*3/uL (160-400); Red Blood Count 4.81 X10*6/uL (4.60-5.80); White Blood Count 8.2 X10*3/uL (4.8-10.8)
[2024-02-19 11:09] LABS: Appearance Urine Clear; Color Urine Yellow; Glucose Urine UA Negative (Negative); Leukocyte Esterase Urine Negative (Negative); Nitrite Urine Negative (Negative); Urine Blood Negative (Negative); Urine Ketones Negative (Negative); Urine Protein Negative (Neg-Trace)
[2024-02-19 11:31] LABS: Prostate Specific Antigen Scr 2.01 ng/mL (<0.05-4.0)
== END 2024-02-19 07:34 | disposition home or self-care (01) ==
LOC: HO.10HDL 07:33
PROVIDERS: Visit Provider Internal Medicine
DX: I10 Essential (primary) hypertension (principal); E78.00 Pure hypercholesterolemia, unspecified; K21.9 Gastro-esophageal reflux disease without esophagitis; M35.3 Polymyalgia rheumatica; Z12.5 Encounter for screening for malignant neoplasm of prostate
CPT/HCPCS: 36415; 80053; 80061; 81003; 84153; 85025; 86140

== ENCOUNTER 2024-09-16 14:40 | Outpatient (AMB) | payer BC, SELFPAY ==
--- NOTE | 2024-09-16 14:41 | MHC.PC.OV ---
Vital Signs 09/16/24 14:43 Height 5 ft 6 in Weight 162 lb BMI 26.1 BP 140/88 H Respiration 16 Pulse 80 Pulse Source Pulse Oximeter Temp 97.6 F Temp Source Temporal Artery Scan Pulse Oximetry (%) 98 Oxygen Delivery Method Room Air Intake Visit Reasons: Routine Supervisor Facepiece Line Required: No Accompanied by: Self / Same As Patient Allergies No Known Allergies Allergy (Verified 09/16/24 14:42) Tobacco use date assessed: 09/16/24 Fall risk assessment: No Falls in past year Last assessed Fall Risk: 09/16/24 Dental Screening Dental Screen Date: 09/16/24 Did you have a dental visit in the last 12 months?: Yes Did you have a dental problem in the last 6 months where you did not have access to dental care?: No HPI HPI Comments History of Present Illness Details 83 y.o htn, hld, GERD, PMR, colon polyps, bph presenting for follow up CV: on olmesartan, hctz, pravastatin. BP 140/88. Not checking BP at home. Denies chest pain, exertional dyspnea. PMR: Has tried to wean further on prednisone. Taking 7.5mg daily. Has tried to decrease to 5 mg daily but has up to now been unsuccesful. Gets recurrent right arm and hand pain. Left knee pain: Follows with [facility] Sees dermatology. Has slightly raised circular rash. Has been using triamcinolone without much improvement Colonoscopy 2020-Dr Em NUNES see HPI PHYSICAL EXAM: GENERAL: Alert and oriented x 3. NAD EYES: EOMI. Anicteric. HENT: Moist mucous membranes. No scleral icterus. No cervical lymphadenopathy. LUNGS: Clear to auscultation bilaterally. CARDIOVASCULAR: Regular rate and rhythm. No murmur. No JVD. ABDOMEN: Soft, non-tender +bs EXTREMITIES: No edema. Non-tender. SKIN: No rashes or lesions. Warm. NEUROLOGIC: No focal neurological deficits. CN II-XII grossly intact PSYCHIATRIC: Cooperative. Appropriate mood and affect [facility] Medical History (Updated 09/17/24 @ 12:[address] MD) History of BPH Polymyalgia rheumatica Acid reflux High cholesterol Hypertension Surgical History History of knee surgery History of prostate surgery H/O colonoscopy Family History Father Heart problem Colon cancer Mother No problems noted. Social History Housing: House Alcohol intake: current Alcohol intake frequency: holidays/special occasions only Patient Tobacco Use Status: Never used Tobacco Second Hand Smoke Exposure: Yes (35 years- smoker) service: No Current occupational status: retired Current occupation: right handed/accounting worker Cognitive needs: No Hearing needs: No Vision needs: Yes (rx glasses) Questionnaire PHQ-9 Over the last 2 weeks, how often have you been bothered by any of the following problems? 1. Little interest or pleasure in doing things: not at all 2. Feeling down, depressed, or hopeless: not at all 3. Trouble falling or staying asleep, or sleeping too much: not at all 4. Feeling tired or having little energy: not at all 5. Poor appetite or overeating: not at all 6. Feeling bad about yourself - or that you are a failure or have let yourself or your family down: not at all 7. Trouble concentrating on things, such as reading the newspaper or watching television: not at all 8. Moving or speaking so slowly that other people could have noticed. Or the opposite - being so fidgety or restless that you have been moving around a lot more than usual: not at all 9. Thoughts that you would be better off or of hurting yourself in some way: not at all Total score: 0 Depression Screening Interpretation: Negative Depression Screening Done: Yes 52753 - PHQ-9 Billing: Yes Source: Developed by Drs. Anthony Acevedo, Gay Torres, Ector Purvis and colleagues, with an educational alva from [employer]. Thrive Questionnaire Date Thrive assessed: 09/16/24 I am a: Patient What is your living situation today?: I have a steady place to live Within the past 12 months, did the food you bought not last and you didn't have the money to get more?: Never true Within the past 12 months, did you worry whether your food would run out before you got money to buy more?: Never true Do you have trouble paying for medicines?: No Do you have trouble getting transportation to medical appointments?: No Do you have trouble paying your heating and electricity bill?: No Do you have trouble taking care of your child, family member or friend?: No Do you have trouble with day-to-day activities such as bathing, preparing meals, shopping, managing finances, etc.?: No Are you currently unemployed and looking for a job?: No Are you interested in more education?: No Please select the resources that you would like help with: None THRIVE Score: 0 AUDIT C Alcohol Use Questionnaire (AUDIT-C) 1. How often do you have a drink containing alcohol?: Monthly or less 2. How many drinks containing alcohol do you have on a typical day when you are drinking?: 1 or 2 3. How often do you have six or more drinks on one occasion?: Never Total Score: 1 TAYLOR-7 AMB Questionnaire TAYLOR-7 Date TAYLOR - 7 assessed: 09/16/24 Feeling nervous, anxious, or on edge: 0 = Not at all Not being able to stop or control worryin = Not at all Worrying too much about different things: 0 = Not at all Trouble relaxin = Not at all Being so restless that it is hard to sit still: 0 = Not at all Becoming easily annoyed or irritable: 0 = Not at all Feeling afraid as if something awful might happen: 0 = Not at all Total TAYLOR-7 score (0-4 normal; 5-9 mild; 10-14 moderate; 15-21 severe): 0 Source: Developed by Drs. Anthony Acevedo, Gay Torres, Ector Purvis and colleagues, with an educational alva from [employer]. Physical exam (Primary Care) Vital Signs: Last Vital Signs Temp 97.6 F 09/16/24 14:43 Pulse 80 09/16/24 14:43 Resp 16 09/16/24 14:43 BP 140/88 H 09/16/24 14:43 Pulse Ox 98 09/16/24 14:43 Oxygen Delivery Method Room Air 09/16/24 14:43 BMI result Body Mass Index 26.1 Tobacco/Smoking Status: Tobacco use Status Tobacco use date assessed 09/16/24 09/16/24 14:52 Patient Tobacco Use Status Never used Tobacco 09/16/24 14:52 PHQ-9: PHQ-9 Score PHQ-9: Total score 0 09/16/24 14:54 Depression Screening Interpretation: Negative Thrive Assessment: Date of Thrive Assessment Date Thrive assessed 09/16/24 09/16/24 14:52 Coding Level of Care Code New Pt Level 4 (52618) Complex EM visit Add On G2211 Diagnoses Primary hypertension I10 Hypertension type: primary hypertension High cholesterol E78.00 Additional Codes PHQ-9 - 02584 - PHQ-9 Billing: Yes ([id number]) Assessment & Plan Assessment & Plan (1) Hypertension: Code(s): I10 - Essential (primary) hypertension Category: Medical Qualifiers: Hypertension type: primary hypertension Qualified Code(s): I10 - Essential (primary) hypertension (2) High cholesterol: Code(s): E78.00 - Pure hypercholesterolemia, unspecified Category: Medical Plan 83 year old to establish care Past medical, surgical, social, family history reviewed He will continue to try and taper down on prednisone Labs ordered Trial of tretinoin for rash Orders: Orders Comprehensive Met. Panel 09/16/24 E78.00 - Pure hypercholesterolemia, unspecified, I10 - Essential (primary) hypertension, Z87.438 - Personal history of other diseases of male genital organs Hemoglobin A1c 09/16/24 E78.00 - Pure hypercholesterolemia, unspecified, I10 - Essential (primary) hypertension, Z87.438 - Personal history of other diseases of male genital organs Complete Blood Count Auto Diff 09/16/24 E78.00 - Pure hypercholesterolemia, unspecified, I10 - Essential (primary) hypertension, Z87.438 - Personal history of other diseases of male genital organs Lipid Panel 09/16/24 E78.00 - Pure hypercholesterolemia, unspecified, I10 - Essential (primary) hypertension, Z87.438 - Personal history of other diseases of male genital organs Medications: New tretinoin 0.05% 1 appl topical 2XW 45 grams 3RF
[2024-09-16 14:43] VITALS: BP 140/88; PULSE 80; RESP 16; TEMP 36.4; O2SAT 98; BMI 26.1
== END 2024-09-16 15:13 | disposition home or self-care (01) ==
LOC: HO.HMCHD 14:40
PROVIDERS: PCP Internal Medicine; Visit Provider Internal Medicine
DX: I10 Essential (primary) hypertension (principal); E78.00 Pure hypercholesterolemia, unspecified

== ENCOUNTER → 2024-09-16 14:40 | Outpatient (BNVA) | payer BC, SELFPAY | PROVIDERS: PCP Internal Medicine; Visit Provider Internal Medicine | DX: I10 Essential (primary) hypertension (principal); E78.5 Hyperlipidemia, unspecified; K21.9 Gastro-esophageal reflux disease without esophagitis; N40.0 Benign prostatic hyperplasia without lower urinary tract symptoms; E78.00 Pure hypercholesterolemia, unspecified; Z87.438 Personal history of other diseases of male genital organs; Z86.0100 Personal history of colon polyps, unspecified | CPT/HCPCS: 96127 ==

== ENCOUNTER 2024-11-24 08:06 | Outpatient (AMB) | payer BC, SELFPAY ==
[2024-11-23 08:17] VITALS: BP 150/90
--- OUTSIDE RECORDS SUMMARY | 2024-11-24 08:13 | XMS_ITS | Patient Health Record ---
Author Organization [facility] Address [address] [place] [address] Care Team Providers Care Delivery Table Operator Name Role Phone Davis Cuevas MD Primary Care Provider Unavaila Anthony Ochoa Unavailable [phone] Reason For Referral No Information Medications Medication SIG (Take, Route, Frequency, Duration) Notes Start Date End Date Status predniSONE 10 MG Orally Act nicolle Pravastatin Sodium 80 MG Orally Active Pepcid Active Aleve Active Vitamin D3 25 MCG (1000 UT) Orally Active hydroCHLOROthiazide 12.5 MG Orally Active Aspirin Low Dose Act nicolle Olmesartan Medoxomil 20 MG Orally Active Immunizations Vaccine Route Administration Date Status Comme nts Influenza Unknown 03/28/2020 Administered Social History Tobacco Use: Social History Observation Description Date Details (start date - stop date) Never Smoker NA - NA Tobacco Use/Smoking Question Answer Notes Patient is a nonsmoker Alcohol Screen Question Answer Notes Did you have a drink containing alcohol in the p ast year? No Points 0 Interpretation Negative Section Notes: Nonsmoker; No sig alcohol Problems Problem Type SNOMED Code ICD Code Onset Dates Problem Status W/U Status Risk Notes Problem Screening for malignant neoplasm of colon (786113115) Encounter for screening for malignant neoplasm of colon (Z12.11) Active confirmed Problem History of adenomatous polyp of colon (277341402) History of adenomatous polyp of colon (Z86.010) Active confirmed Problem Preprocedural examination (430094203642769) Preprocedural examination (Z01.818) Active confirmed Problem Long-term current use of aspirin (462147272097470) Aspirin long-term use (Z79.82) Active confirmed Problem Diverticular disease of colon (965224780) Colon, diverticulosis (K57.30) Active confirmed Plan Of Treatment Pending Test Test Name Order Date Pathology 12/03/2020 Future Test Test Name Order Date COLONOSCOPY 05/23/2020 Insurance Providers Payer Name Payer Address Payer Phone Subscriber Number Group Number Insured Name Patient Relationship to Insured Coverage Start Date Coverage End Date [facility] [address] [place], [place] [id number] Self - patient is the insured Medical (General) History Medical History History ICD Code Hypertension Hyperlipidemia Polymyalgia rheumatica Summer 2019 GERD-on Pepcid Back pain Tubular adenoma removed in , then negative colonoscopies in 2004 and 2009 Denies [place],DM,CVA,Lung disease,renal dise ase Surgical History Surgery Date(Month/Year) Knee surgery - left knee Enlarged prostate
--- NOTE | 2024-11-24 08:17 | A.OFFPC_ITS ---
Vital Signs 11/23/24 08:17 BP 150/90 H Intake Visit Reasons: TELEHEALTH LABS Allergies No Known Allergies Allergy (Verified 11/24/24 08:20) Medication List - Last Reconciled 11/24/24 by SERGIO Rooney- aspirin 81 mg PO DAILY blood pressure monitor As directed cholecalciferol (vitamin D3) 25 mcg PO DAILY famotidine (Pepcid) 20 mg PO DAILY hydrochlorothiazide 12.5 mg PO DAILY olmesartan 1 tab PO DAILY pravastatin 1 tab PO DAILY prednisone 1 tab PO DAILY tretinoin 0.05% 1 appl topical 2XW Tobacco use date assessed: 09/16/24 Dental Screening Dental Screen Date: 09/16/24 HPI HPI Comments History of Present Illness Details Late entry for 11/23/24 History of Present Illness - The patient is an 83-year-old male pre senting with concerns of elevated blood pressure and pain management query. - Diagnosed with Essential Hypertension, currently on Hydrochlorothiazide 12.5 mg and Olmesartan 20 mg daily. - Recent knee replacement 1 week ago, us ing celecoxib for pain. - Noted blood pressure of 150/90 by juan ramon sandra nurse PT today - Denies cardiac symptoms: dyspnea, ches t pain, or edema. - Advised to stop Celecoxib by physical therapist. - Does not have home BP cuff Review of Systems - Cardiovascular: Denies chest pain, erika rtness of breath, or lower extremity swelling. - Musculoskeletal: Reports postoperative knee pain, managed with Celebrex. Assessment and Plan 1. Essential Hypertension - Continue Hydrochlorothiazide and Olmes maine. - Initiate home BP monitoring; BP cuff p rescription provided. Sent to [facility] [employer], denied. Sent message to staff to send to a [employer], ? Over 40 Females surgical. - Office BP check scheduled for Thursday a t 11am in [place]. Advised to bring home log w/ him 2. Postoperative Care for Knee Replaceme nt - Discussed ongoing pain management post -knee replacement. - Advised to discontinue Celecoxib unles s he feels he needs this for pain; review of his VS do show values on the higher end of normal. - Follow-up with primary care advised. 3. Pain Management - Instructed on pain medication interact ions. Telehealth Attestation Documentation of this visit was conducted via remote telehealth consultation. The patient has been explained that this is an interactive (audio/video) telehealth encounter and what that consists of. The patient understands and wishes to proceed. [employer] platform was used. Total time spent caring for the patient today was 18 minutes. This includes time spent before the visit reviewing the chart, time spent during the visit, and time spent after the visit on documentation, reviewing laboratory results, diagnostic imaging, medications, performing a medically necessary evaluation, counseling on diagnoses, care coordination, ordering appropriate tests, ordering appropriate medications, review of tests performed by other providers, reporting test results with the patient, communication with other healthcare providers. [facility] Medical History (Updated 09/17/24 @ 12:[address] MD) Acid reflux High cholesterol History of BPH Hypertension Polymyalgia rheumatica Surgical History H/O colonoscopy History of knee surgery History of prostate surgery Family History Father Heart problem Colon cancer Mother No problems noted. Social History Housing: House Alcohol intake: current Alcohol intake frequency: holidays/special occasions only Patient Tobacco Use Status: Never used Tobacco Second Hand Smoke Exposure: Yes (35 years- smoker) service: No Current occupational status: retired Current occupation: right handed/accounting worker Cognitive needs: No Hearing needs: No Vision needs: Yes (rx glasses) Questionnaire Thrive Questionnaire Date Thrive assessed: 09/16/24 TAYLOR-7 AMB Questionnaire TAYLOR-7 Date TAYLOR - 7 assessed: 09/16/24 Source: Developed by Drs. Anthony Acevedo, Gay Torres, Ector Purvis and colleagues, with an educational alva from [employer]. Physical exam (Primary Care) Tobacco/Smoking Status: Tobacco use Status Tobacco use date assessed 09/16/24 09/16/24 14:52 Patient Tobacco Use Status Never used Tobacco 09/16/24 14:52 Thrive Assessment: Date of Thrive Assessment Date Thrive assessed 09/16/24 09/16/24 14:52 Telehealth Telehealth Telehealth Platform: [employer] Location of patient: address on file Patient Identification confirmed using: Name, : Yes Telehealth method: voice only Patient verbally consented to treatment: Yes Patient verbally consented to billing insurance company: Yes Patient informed of any privacy concerns related to visit: Yes Minutes spent on Phone/Video with Pt.: 10 Coding Level of Care Code Est Pt Level 2 (45102) Complex EM visit Add On G2211 Diagnoses Primary hypertension I10 Hypertension type: primary hypertension Assessment & Plan Assessment & Plan (1) Hypertension: Code(s): I10 - Essential (primary) hypertension Category: Medical Qualifiers: Hypertension type: primary hypertension Qualified Code(s): I10 - Essential (primary) hypertension Plan .
== END 2024-11-24 08:09 | disposition home or self-care (01) ==
LOC: HO.HMCFM 08:06
PROVIDERS: PCP Internal Medicine; Visit Provider Nurse Practitioner Family
DX: I10 Essential (primary) hypertension (principal)

== ENCOUNTER → 2024-11-24 08:06 | Outpatient (BNVA) | payer BC, SELFPAY | PROVIDERS: PCP Internal Medicine; Visit Provider Nurse Practitioner Family | DX: Z13.89 Encounter for screening for other disorder (principal) ==

== ENCOUNTER 2025-01-19 14:40 | Outpatient (AMB) | payer BC, SELFPAY ==
--- OUTSIDE RECORDS SUMMARY | 2025-01-19 14:44 | XMS_ITS | Patient Health Record ---
Author Organization [facility] Address [address] [place] [address] Care Team Providers Care Tapering Machine Operator Name Role Phone Faith (RETIRED) Davis WARD Primary Care Provide r Unavailable Anthony Strickland Unavailable [phone] Reason For Referral No Information Medications Medication [...] Problem Screening for malignant neoplasm of colon (605366726) Encounter for screening for malignant neoplasm of colon (Z12.11) Active confirmed Problem History of adenomatous polyp of colon (444017414) History of adenomatous polyp of colon (Z86.010) Active confirmed Problem Preprocedural examination (554851460125628) Preprocedural examination (Z01.818) Active confirmed Problem Long-term current use of aspirin (985562913402510) Aspirin long-term use (Z79.82) Active confirmed Problem Colon, diverticulosis (K57.30) Active confirmed Plan Of Treatment Pending Test Test Name Order Date Pathology 12/03/2020 Future Test Test Name Order Date COLONOSCOPY 05/23/2020 Insurance Providers Payer Name Payer Address Payer Phone Subscriber Number Group Number Insured Name Patient Relationship to Insured Coverage Start Date Coverage End Date [facility] [address] [place], [place] [id number] Self - patient is the insured Medical (General) History Medical History History ICD Code Hypertension Hyperlipidemia Polymyalgia rheumatica Summer 2019 GERD-on Pepcid Back pain Tubular adenoma removed in , then negative colonoscopies in 2004 and 2009 Denies [place],DM,CVA,Lung disease,renal dise ase Surgical History Surgery Date(Month/Year) Knee surgery - left knee Enlarged prostate
--- NOTE | 2025-01-19 15:04 | A.OFFPC_ITS ---
Vital Signs 01/19/25 15:09 Height 5 ft 6 in Weight 158 lb BMI 25.5 BP 144/86 H Blood Pressure Location Lt brachial Position Sitting Respiration 16 Pulse 68 Pulse Source Pulse Oximeter Temp 97.2 F Pulse Oximetry (%) 95 Oxygen Delivery Method Room Air Intake Visit Reasons: 4 Month F/U Clinical Support Specialist Required: No Accompanied by: Self / Same As Patient Allergies No Known Allergies Allergy (Verified 01/19/25 15:06) Tobacco use date assessed: 09/16/24 Dental Screening Dental Screen Date: 09/16/24 HPI HPI Comments History of Present Illness Details 83 y.o htn, hld, GERD, PMR, colon polyps , bph presenting for follow up 5 days ago developed sore throat, sinus congestion, junky cough. CV: on olmesartan 40mg, hctz, pravastatin. BP 144/86. Not checking BP at home. Denies chest pain, exertional dyspnea. PMR: Has tried to wean further on prednisone. Is doing ok n 5mg-recently decreased from 7.5mg. Recurrent right hand pain flares when trying to decrease dosing Left knee pain: Follows with [facility] Colonoscopy 2020-Dr Em NUNES see HPI PHYSICAL EXAM: GENERAL: Alert and oriented x 3. NAD EYES: EOMI. Anicteric. HENT: Moist mucous membranes. No scleral icterus. No cervical lymphadenopathy. LUNGS: Clear to auscultation bilaterally. CARDIOVASCULAR: Regular rate and rhythm. No murmur. No JVD. ABDOMEN: Soft, non-tender +bs EXTREMITIES: No edema. Non-tender. SKIN: No rashes or lesions. Warm. NEUROLOGIC: No focal neurological deficits. CN II-XII grossly intact PSYCHIATRIC: Cooperative. Appropriate mood and affect ON LICENSE OF [facility] Medical History History of BPH Polymyalgia rheumatica Acid reflux High cholesterol Hypertension Surgical History History of knee surgery History of prostate surgery H/O colonoscopy (~12/07/20) Family History Father Heart problem Colon cancer Mother No problems noted. Social History Housing: House Alcohol intake: current Alcohol intake frequency: holidays/special occasions only Patient Tobacco Use Status: Never used Tobacco Second Hand Smoke Exposure: Yes (35 years- smoker) service: No Current occupational status: retired Current occupation: right handed/accounting worker Cognitive needs: No Hearing needs: No Vision needs: Yes (rx glasses) Questionnaire Thrive Questionnaire Date Thrive assessed: 09/16/24 TAYLOR-7 AMB Questionnaire TAYLOR-7 Date TAYLOR - 7 assessed: 09/16/24 Source: Developed by Drs. Anthony Acevedo, Gay Torres, Ector Purvis and colleagues, with an educational alva from [employer]. Physical exam (Primary Care) Vital Signs: Last Vital Signs Temp 97.2 F 01/19/25 15:09 Pulse 68 01/19/25 15:09 Resp 16 01/19/25 15:09 BP 144/86 H 01/19/25 15:09 Pulse Ox 95 01/19/25 15:09 Oxygen Delivery Method Room Air 01/19/25 15:09 BMI result Body Mass Index 25.5 Tobacco/Smoking Status: Tobacco use Status Tobacco use date assessed 09/16/24 01/19/25 15:05 Patient Tobacco Use Status Never used Tobacco 01/19/25 15:05 Thrive Assessment: Date of Thrive Assessment Date Thrive assessed 09/16/24 01/19/25 15:05 Coding Level of Care Code Est Pt Level 4 (68812) Diagnoses Primary hypertension I10 Hypertension type: primary hypertension Polymyalgia rheumatica M35.3 Subacute frontal sinusitis J01.10 Chronicity: subacute Sinusitis location: frontal Assessment & Plan Assessment & Plan (1) Hypertension: Code(s): I10 - Essential (primary) hypertension Category: Medical Qualifiers: Hypertension type: primary hypertension Qualified Code(s): I10 - Essential (primary) hypertension (2) Polymyalgia rheumatica: Code(s): M35.3 - Polymyalgia rheumatica Category: Medical (3) Sinusitis: Code(s): J32.9 - Chronic sinusitis, unspecified Category: Medical Qualifiers: Chronicity: subacute Sinusitis location: frontal Qualified Code(s): J01.10 - Acute frontal sinusitis, unspecified Plan HTN-suboptimal control. Start norvasc 2.5mg daily. continue olmesartan and hctz sinusitis-aztihromycin ordered HLD -continue statin therapy Medications: New azithromycin For 250 mg dose pack: take 500 mg today (day 1), then 250 mg for 4 days (days 2-5) PO 6 tabs 0RF amlodipine (Norvasc) good rx if not covered [id number] [facility] [id number] Member [id number] 2.5 mg PO DAILY 90 tabs 1RF Refilled olmesartan 40 mg PO DAILY 90 tabs 3RF
[2025-01-19 15:09] VITALS: BP 144/86; PULSE 68; RESP 16; TEMP 36.2; O2SAT 95; BMI 25.5
== END 2025-01-19 15:41 | disposition home or self-care (01) ==
LOC: HO.HMCHD 14:40
PROVIDERS: PCP Internal Medicine; Visit Provider Internal Medicine
DX: I10 Essential (primary) hypertension (principal); M35.3 Polymyalgia rheumatica; J01.10 Acute frontal sinusitis, unspecified

== ENCOUNTER 2025-02-24 10:15 | Outpatient (AMB) | payer BC, SELFPAY ==
--- NOTE | 2025-02-24 10:19 | A.OFFPC_ITS ---
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 He is scheduled for two cataract surgeries, one at the end of February and another at the end of March. Cataracts have impacted his vision significantly enough to warrant surgical intervention. Additionally, the patient has a history of hypertension, which became apparent following knee replacement surgery. The hypertension has been managed with medications, and recent blood pressure readings have been in an acceptable range. However, the patient was advised to monitor his blood pressure closely at home and keep it under 130s, as the current reading was 140. With a past diagnosis of Polymyalgia Rheumatica (PMR), he reports self-managing the condition with prednisone. He is currently on a daily dose of 5 mg, which he has been effectively tolerating without significant pain recurrence. Any attempt to reduce the dosage further has historically resulted in increased pain, especially in his hand and wrist. He has maintained the 5 mg dosage for the last three to four weeks. Medical History: - Essential Hypertension - Polymyalgia Rheumatica (PMR) Surgical History: - Knee replacement surgery Medications: - Olmesartan for hypertension - Amlodipine for hypertension - Prednisone 5 mg daily for Polymyalgia Rheumatica [facility] Medical History (Updated 02/24/25 @ 10:46 by Matt Milan MD) Pre-op examination History of BPH Polymyalgia rheumatica Acid reflux High cholesterol Hypertension Surgical History History of knee surgery History of prostate surgery H/O colonoscopy (~12/07/20) Family History Father Heart problem Colon cancer Mother No problems noted. Social History Housing: House Alcohol intake: current Alcohol intake frequency: holidays/special occasions only Patient Tobacco Use Status: Never used Tobacco e-Cigarette/Vaping Use: Never Used Second Hand Smoke Exposure: Yes (35 years- smoker) service: No Current occupational status: retired Current occupation: right handed/accounting worker Cognitive needs: No Hearing needs: No Vision needs: Yes (rx glasses) Questionnaire Thrive Questionnaire Date Thrive assessed: 09/16/24 AUDIT C Alcohol Use Questionnaire (AUDIT-C) 1. How often do you have a drink containing alcohol?: Never 3. How often do you have six or more drinks on one occasion?: Never Total Score: 0 TAYLOR-7 AMB Questionnaire TAYLOR-7 Date TAYLOR - 7 assessed: 09/16/24 Source: Developed by Drs. Anthony Acevedo, Gay Torres, Ector Purvis and colleagues, with an educational alva from [employer]. Review of Systems Const Details: - Cardiovascular: Reports history of high blood pressure - Endocrine: Reports use of prednisone for PMR - Musculoskeletal: Reports history of knee replacement and associated recovery - Neurological: Denies history of stroke - Respiratory: Denies shortness of breath or any respiratory issues All systems reviewed & are unremarkable except as noted in HPI and below Physical exam (Primary Care) Vital Signs: Last Vital Signs Temp 97.5 F 02/24/25 10:26 Pulse 69 02/24/25 10:26 Resp 18 02/24/25 10:26 BP 140/78 H 02/24/25 10:26 Pulse Ox 95 02/24/25 10:26 Oxygen Delivery Method Room Air 02/24/25 10:26 BMI result Body Mass Index 26.1 Tobacco/Smoking Status: Tobacco use Status Tobacco use date assessed 09/16/24 02/24/25 10:21 Patient Tobacco Use Status Never used Tobacco 02/24/25 10:21 e-Cigarette/Vaping Use Never Used 02/24/25 10:21 Thrive Assessment: Date of Thrive Assessment Date Thrive assessed 09/16/24 02/24/25 10:21 Const Other: General: +Alert and oriented, Well nourished, No acute distress. Eye: Pupils are equal, round and reactive to light, Intact accommodation, Extraocular movements are intact, Normal conjunctiva, Vision unchanged. HENT: Normocephalic, Atraumatic, Tympanic membranes are clear, Hearing is diminished, Oral mucosa is moist, No pharyngeal erythema, Ear canals patent. Respiratory: Lungs CTA bilaterally, No wheeze, Respirations are non-labored. Cardiovascular: Regular rate, Regular rhythm, S1 auscultated, S2 auscultated, No murmur, Good pulses equal in all extremities, Normal peripheral perfusion, No edema. Gastrointestinal: Soft, Non-tender, Non-distended, Normal bowel sounds, No organomegaly. Musculoskeletal: Normal range of motion, Normal strength, No tenderness, No swelling, No deformity, Normal gait. Integumentary: Warm, Dry, [place], Intact. Neurologic: Alert, Oriented, Normal sensory, Normal motor function, No focal defects, Cranial Nerves II-XII are grossly intact, Normal deep tendon reflexes. Psychiatric: Cooperative, Appropriate mood & affect, Normal judgment. Office Procedures EKG [id number], Complete Coding Level of Care Code Est Pt Level 4 (67199) Complex EM visit Add On G2211 Diagnoses Primary hypertension I10 Hypertension type: primary hypertension Polymyalgia rheumatica M35.3 Pre-op examination Z01.818 CPT Codes EKG - CPT: [id number], Complete ([id number]) Assessment & Plan Assessment & Plan (1) Hypertension: Comment: - Blood pressure monitoring at home recommended with a target of under 130s. - Continued current medication regimen. - Blood work ordered to assess general health status. Code(s): I10 - Essential (primary) hypertension Category: Medical Qualifiers: Hypertension type: primary hypertension Qualified Code(s): I10 - Essential (primary) hypertension (2) Polymyalgia rheumatica: Comment: - Continue current prednisone dosage at 5 mg daily. - Monitor for pain recurrence particularly in the hand and wrist area. Code(s): M35.3 - Polymyalgia rheumatica Category: Medical (3) Pre-op examination: Comment: - No history of cardiac events - Has been on chronic prednisone for over 4 years, however is undergoing cataract surgery did not require a larger dose and can continue chronic prednisone - EKG reviewed in clinic within normal limits - RCRI index at 0.5% risk of major cardiac events Code(s): Z01.818 - Encounter for other preprocedural examination Category: Medical Plan I discussed the plan for cataract surgery with the patient, emphasizing its minor nature and the low associated risks. We reviewed the need for preoperative clearance and the additional consideration required due to prolonged prednisone use, which may require perioperative steroid management. I stressed the importance of blood pressure control, given the patient?s essential hypertensi on, aiming to maintain it under 130s. The discussion included a 0.5% risk of cardiac events. Orders: Orders Complete Blood Count Auto Diff Today I10 - Essential (primary) hypertension Hemoglobin A1c Today I10 - Essential (primary) hypertension HIV Ab/Ag Today I10 - Essential (primary) hypertension Lipid Panel Today I10 - Essential (primary) hypertension Vitamin D 25-OH Total Today I10 - Essential (primary) hypertension Comprehensive Met. Panel Today I10 - Essential (primary) hypertension Syphilis Screen Today I10 - Essential (primary) hypertension TSH reflex Free T4 Today I10 - Essential (primary) hypertension AMB EKG-In Office Today Z01.818 - Encounter for other preprocedural examination Medications: New blood pressure monitor As directed 1 ea 0RF Patient Instructions: - Continue with current blood pressure medications. - Monitor blood pressure at home, aiming for readings under 130. - Maintain current prednisone regimen for PMR. - Complete pre-op blood work and EKG as instructed. - Return for pre-surgery clearance following test results. - Schedule and attend follow-up appointments as needed.
[2025-02-24 10:26] VITALS: BP 140/78; PULSE 69; RESP 18; TEMP 36.4; O2SAT 95; BMI 26.1
--- OUTSIDE RECORDS SUMMARY | 2025-02-24 11:17 | XMS_ITS | Patient Health Record ---
Author Organization [facility] Address [address] [place] [address] Care Team Providers Care Lacquer Sizer Name Role Phone Faith (RETIRED) Davis WARD Primary Care Provide r Unavailable Anthony Strickland Unavailable [phone] Reason For Referral No Information Medications Medication [...] Problem Screening for malignant neoplasm of colon (994684380) Encounter for screening for malignant neoplasm of colon (Z12.11) Active confirmed Problem History of adenomatous polyp of colon (280604784) History of adenomatous polyp of colon (Z86.010) Active confirmed Problem Preprocedural examination (542929205825989) Preprocedural examination (Z01.818) Active confirmed Problem Long-term current use of aspirin (679248466659701) Aspirin long-term use (Z79.82) Active confirmed Problem Diverticular disease of colon (456567567) Colon, diverticulosis (K57.30) Active confirmed Plan Of Treatment Pending Test Test Name Order Date Pathology 12/03/2020 Future Test Test Name Order Date COLONOSCOPY 05/23/2020 Insurance Providers Payer Name Payer Address Payer Phone Subscriber Number Group Number Insured Name Patient Relationship to Insured Coverage Start Date Coverage End Date [facility] [address] [place], [place] [id number] Self - patient is the insured Medical (General) History Medical History History ICD Code Hypertension Hyperlipidemia Polymyalgia rheumatica Summer 2019 GERD-on Pepcid Back pain Tubular adenoma removed in , then negative colonoscopies in 2004 and 2009 Denies [place],DM,CVA,Lung disease,renal dise ase Surgical History Surgery Date(Month/Year) Knee surgery - left knee Enlarged prostate
== END 2025-02-24 11:01 | disposition home or self-care (01) ==
LOC: HO.HMCHD 10:15
PROVIDERS: PCP Student in an Organized Health Care Education/Training Program; Visit Provider Student in an Organized Health Care Education/Training Program
DX: I10 Essential (primary) hypertension (principal); M35.3 Polymyalgia rheumatica; Z01.818 Encounter for other preprocedural examination

== ENCOUNTER → 2025-02-24 10:15 | Outpatient (BNVA) | payer BC, SELFPAY | PROVIDERS: PCP Internal Medicine; Visit Provider Student in an Organized Health Care Education/Training Program | DX: I10 Essential (primary) hypertension (principal) | CPT/HCPCS: 93005 ==

== ENCOUNTER 2025-02-24 11:05 | Outpatient (REF) | payer BC, SELFPAY ==
[2025-02-24 13:00] LABS: MANUAL DIFF FLAG NO
[2025-02-24 13:03] LABS: Hematocrit 44.7 % (42.0-52.0); Hemoglobin 14.7 g/dl (14.0-18.0); Imm Gran Abs Auto 0.03 X10*3/uL (0.00-0.03); Imm Gran Pct Auto 0.4 % (0.0-0.4); Lymphocytes Absolute Auto 1.2 X10*3/uL (1.2-4.9); Mean Corpuscular HGB Conc 32.9 g/dl (31.0-36.0); Mean Corpuscular Hemoglobin 29.7 pg (27.0-33.0); Mean Corpuscular Volume 90.3 fL (80.0-98.0); NRBC Abs Auto 0.000 X10*3/uL (0.0-0.012); NRBC Pct Auto 0.0 /100WBC (0.0-0.2); Platelet Count 228 X10*3/uL (160-400); Red Blood Count 4.95 X10*6/uL (4.60-5.80); White Blood Count 8.2 X10*3/uL (4.8-10.8)
[2025-02-24 13:20] LABS: Hemoglobin A1C 153.2807 umol/L; Total Hemoglobin (HGBA1C) 3799.0975 umol/L
[2025-02-24 13:26] LABS: Alanine Aminotransferase 20 U/L (0-40); Albumin Level 4.1 g/dL (3.5-5.0); Alkaline Phosphatase 74 U/L (39-117); Anion Gap 12 (12-20); Aspartate Amino Transferase 36 U/L (5-37); Blood Urea Nitrogen 14 mg/dL (9-16); Calcium 9.1 mg/dL (8.4-10.2); Carbon Dioxide 29 mmol/L (22-29); Chloride 101 mmol/L (96-108); Cholesterol 216 mg/dL (<200); Estimated Glomerular Filt Rate > 60; HDL Cholesterol 88 mg/dL (>40); Potassium 4.0 mmol/L (3.3-5.1); Sodium 138 mmol/L (135-145); Total Protein 6.7 g/dL (6.5-8.0); Triglycerides 113 mg/dL (<150)
[2025-02-27 03:37] LABS: Syphilis Screen Nonreactive (Nonreactive)
[2025-02-27 03:52] LABS: HIV Num 1 0.06 S/CO (0.00-0.99)
== END 2025-02-24 11:06 | disposition home or self-care (01) ==
LOC: HO.10HDL 11:05
PROVIDERS: Visit Provider Student in an Organized Health Care Education/Training Program
DX: Z11.4 Encounter for screening for human immunodeficiency virus [HIV] (principal); I10 Essential (primary) hypertension; Z13.1 Encounter for screening for diabetes mellitus; Z13.21 Encounter for screening for nutritional disorder
CPT/HCPCS: 36415; 80053; 80061; 82306; 83036; 84443; 85025; 86780; 87389

== ENCOUNTER 2025-05-31 15:22 | Outpatient (AMB) | payer BC, SELFPAY ==
--- NOTE | 2025-05-31 15:28 | A.OFFPC_ITS ---
Vital Signs 05/31/25 15:34 Height 5 ft 6 in Weight 165 lb 2 oz BMI 26.6 BP 124/68 Pulse 83 Pulse Source Pulse Oximeter Temp 97.4 F Temp Source Temporal Artery Scan Pulse Oximetry (%) 93 Oxygen Delivery Method Room Air Intake Visit Reasons: S/P Cateract surgery, bilateral Teasel Setter Required: No Accompanied by: Self / Same As Patient Allergies No Known Allergies Allergy (Verified 05/31/25 15:28) Medication List - Last Reconciled 05/31/25 by Matt Milan MD amlodipine (Norvasc) 2.5 mg PO DAILY aspirin 81 mg PO DAILY blood pressure monitor As directed blood pressure monitor As directed cholecalciferol (vitamin D3) 25 mcg PO DAILY famotidine (Pepcid) 20 mg PO DAILY hydrochlorothiazide 12.5 mg PO DAILY 90 days olmesartan 40 mg PO DAILY pravastatin 80 mg PO DAILY prednisone 10 mg PO DAILY triamcinolone acetonide 0.5% appl topical BID PRN Tobacco use date assessed: 09/16/24 Dental Screening Dental Screen Date: 09/16/24 HPI HPI Comments History of Present Illness Details History of Present Illness The patient is an 84 year old male presenting with difficulty walking and insomnia. The patient has a history of polymyalgia rheumatica (PMR) and was prescribed prednisone 10 mg daily. He has self-adjusted his dose to 5 mg daily and has attempted to wean off the medication, but reports recurrence of pain upon discontinuation. His medical history is also significant for hypertension, coronary artery d isease, acid reflux, and hypercholesterolemia. He reports taking amlodipine 2.5 mg, hydrochlorothiazide 12.5 mg, and olmesartan 40 mg for blood pressure; aspirin for coronary artery disease; Pepcid for acid reflux; and pravastatin 80 mg for cholesterol. Home blood pressure readings have been around 140-150s/87 mmHg in the mornings, but were 134/81 mmHg in the afternoon. Review of lab work from February reveals a total cholesterol of 216 mg/dL and an LDL of 106 mg/dL. His hemoglobin A1c was 5.8%, consistent with prediabetes, which was also present in 2020 with an A1c of 5.9%. Surgically, he underwent a knee replacement on November 16, which has healed well, and had cataract surgery with good visual improvement. He also mentions a history of cancer, which has recently prevented him from swimming. In terms of exercise, he typically swims laps for 45 minutes daily and uses an exercise bike for 30 minutes, but has been unable to swim for a couple of months due to his recent health issues. Medical History: - Hypertension - Coronary artery disease - Acid reflux - Hypercholesterolemia - Polymyalgia rheumatica - Prediabetes, with a history of A1c at 5.9 in 2020 and 5.8 currently - Cancer (type unspecified) Surgical History: - Cataract surgery - Knee replacement on November 16 Medications: - Amlodipine 2.5 mg for blood pressure - Aspirin for coronary artery disease - Pepcid for acid reflux - Hydrochlorothiazide 12.5 mg for blood pressure - Olmesartan 40 mg for blood pressure - Pravastatin 80 mg for cholesterol - Prednisone 5 mg daily for polymyalgia rheumatica (self-tapered from 10 mg) Diagnostic Results: - Labs from February: - Hemoglobin A1c: 5.8% - Total cholesterol: 216 mg/dL - LDL cholesterol: 106 mg/dL - Electrolytes: Normal Social History - Exercise: Patient normally swims laps for 45 minutes and rides an exercise bike for 30 minutes daily but has been unable to swim for the past couple of months. - Functional Status: Reports difficulty walking. - Living Situation: Will be staying in [facility] through the winter. [facility] Medical History (Updated 05/31/25 @ 15:49 by Matt Milan MD) Prediabetes Pre-op examination History of BPH Polymyalgia rheumatica Acid reflux High cholesterol Hypertension Surgical History History of knee surgery History of prostate surgery H/O colonoscopy (~12/07/20) Family History Father Heart problem Colon cancer Mother No problems noted. Social History Housing: House Alcohol intake: current Alcohol intake frequency: holidays/special occasions only Patient Tobacco Use Status: Never used Tobacco e-Cigarette/Vaping Use: Never Used Second Hand Smoke Exposure: Yes (35 years- smoker) service: No Current occupational status: retired Current occupation: right handed/accounting worker Cognitive needs: No Hearing needs: No Vision needs: Yes (rx glasses) Questionnaire Thrive Questionnaire Date Thrive assessed: 09/16/24 TAYLOR-7 AMB Questionnaire TAYLOR-7 Date TAYLOR - 7 assessed: 09/16/24 Source: Developed by Drs. Anthony Acevedo, Gay Torres, Ector Purvis and colleagues, with an educational alva from [employer]. Review of Systems Narrative Review of Systems - General: Reports feeling about 80% of his usual self. - Neurological: Denies pain with leg raises. - Musculoskeletal: Reports recurrence of pain when trying to stop prednisone. Reports difficulty walking. Reports knee is doing well post-replacement. - Constitutional: Reports not sleeping well. All systems reviewed & are unremarkable except as reviewed in HPI and above Physical exam (Primary Care) Vital Signs: Last Vital Signs Temp 97.4 F 05/31/25 15:34 Pulse 83 05/31/25 15:34 BP 124/68 05/31/25 15:34 Pulse Ox 93 05/31/25 15:34 Oxygen Delivery Method Room Air 05/31/25 15:34 BMI result Body Mass Index 26.6 Tobacco/Smoking Status: Tobacco use Status Tobacco use date assessed 09/16/24 05/31/25 15:31 Patient Tobacco Use Status Never used Tobacco 05/31/25 15:31 e-Cigarette/Vaping Use Never Used 05/31/25 15:31 Thrive Assessment: Date of Thrive Assessment Date Thrive assessed 09/16/24 05/31/25 15:31 Narrative Physical Exam General: +Alert and oriented, Well nourished, No acute distress. Eye: Pupils are equal, round and reactive to light, Intact accommodation, Extraocular movements are intact, Normal conjunctiva, Vision improved post- cataract surgery. HENT: Normocephalic, Atraumatic, Tympanic membranes are clear, Normal hearing, Oral mucosa is moist, No pharyngeal erythema, Ear canals patent. Respiratory: Lungs CTA bilaterally, No wheeze, Respirations are non-labored. Cardiovascular: Regular rate, Regular rhythm, S1 auscultated, S2 auscultated, No murmur, Good pulses equal in all extremities, Normal peripheral perfusion, No edema. Gastrointestinal: Soft, Non-tender, Non-distended, Normal bowel sounds, No organomegaly. Musculoskeletal: Normal range of motion, Normal strength, No tenderness, No swelling, No deformity, Normal gait. Status post knee replacement, doing well. Integumentary: Warm, Dry, [place], Intact. Neurologic: Alert, Oriented, Normal sensory, Normal motor function, No focal defects, Cranial Nerves II-XII are grossly intact, Normal deep tendon reflexes. Psychiatric: Cooperative, Appropriate mood & affect, Normal judgment. Coding Level of Care Code Est Pt Level 4 (61686) Add On Problem Visit Only Diagnoses Primary hypertension I10 Hypertension type: primary hypertension High cholesterol E78.00 Polymyalgia rheumatica M35.3 Prediabetes R73.03 Assessment & Plan Assessment & Plan (1) Hypertension: Comment: - Blood pressure is well-controlled in the office today at 134/81 mmHg, though home readings are higher in the morning. - Continue current medications including amlodipine, hydrochlorothiazide, and olmesartan. - The patient is advised to continue monitoring his blood pressure at home once or twice a week. Code(s): I10 - Essential (primary) hypertension Category: Medical Qualifiers: Hypertension type: primary hypertension Qualified Code(s): I10 - Essential (primary) hypertension (2) High cholesterol: Comment: - Labs from February showed a total cholesterol of 216 mg/dL and LDL of 106 mg/dL. - Continue pravastatin 80 mg. - Advised to watch diet, particularly sugars and carbs. Code(s): E78.00 - Pure hypercholesterolemia, unspecified Category: Medical (3) Polymyalgia rheumatica: Comment: - The patient is currently on prednisone 5 mg daily, having self-tapered from 10 mg. - He reports pain recurrence on attempts to stop the medication. - Discussed the negative long-term effects of any dose of steroids and encouraged a very slow taper. - No changes made to the current dose at this time. Code(s): M35.3 - Polymyalgia rheumatica Category: Medical (4) Prediabetes: Comment: - The patient's A1c is 5.8%. - He was advised that prednisone use can worsen this. - Recommended dietary monitoring of sugars and carbs. Code(s): R73.03 - Prediabetes Category: Medical Plan: Health Maintenance; - The patient's next annual physical examination is due in February. - He is advised to continue monitoring his blood pressure at home once or twice a week. - Discussion included the importance of a healthy diet, particularly watching intake of sugars and carbohydrates, to manage prediabetes and hypercholesterolemia. - The patient is encouraged to remain active, with his usual routine including swimming and biking when able. Patient was informed and verbally consented to the use of an ambient scribe for clinic note documentation during this visit. Plan I reviewed the patient's current health status and am pleased with his overall condition. We discussed his medications, including the risks of long-term prednisone use for his polymyalgia rheumatica, and the importance of a very slow taper, even though he experiences pain recurrence. I informed him of his diagnosis of prediabetes and explained how prednisone can adversely affect his blood sugar levels. I recommended he continue to monitor his blood pressure at home one to two times per week and to be mindful of his diet by watching sugars and carbohydrates. I confirmed that no immediate changes to his medications or new lab work are necessary at this time. We agreed on a follow-up appointment in four months. Medications: Changed From pravastatin 1 tab PO DAILY To pravastatin 80 mg PO DAILY 90 tabs 2RF Patient Instructions: - Continue your current medications as prescribed. - Check your blood pressure at home once or twice a week to keep track of it. - Be mindful of your diet by limiting sugars and carbohydrates to help with your prediabetes and cholesterol. - No blood tests are needed before your next visit. - Please schedule a follow-up appointment for four months from now at the front office representative.
[2025-05-31 15:34] VITALS: BP 124/68; PULSE 83; TEMP 36.3; O2SAT 93; BMI 26.6
--- OUTSIDE RECORDS SUMMARY | 2025-05-31 23:55 | XMS_ITS | Patient Health Record ---
Author Organization [facility] Address [address] [place] [address] Care Team Providers Care Road Supervisor Of Engines Name Role Phone Faith (RETIRED) Davis WARD Primary Care Provide r Unavailable Anthony Strickland Unavailable [phone] Reason For Referral No Information Medications Medication SIG (Take, Route, Frequency, Duration) Notes Start Date End Date Status predniSONE 10 MG Tablet Orally Active Pravastatin Sodium 80 MG Tablet Orally Active Pepcid Active Aleve Active Vitamin D3 25 MCG (1000 UT) Capsule Orally Active hydroCHLOROthiazide 12.5 MG Tablet Orally Active Aspirin Low Dose Act nicolle Olmesartan Medoxomil 20 MG Tablet Orally Active Immunizations Vaccine Route Administration Date Status Comme nts Influenza Unknown 03/28/2020 Administered Social History Tobacco Use: Social History Observation Description Date Details (start date - stop date) Never Smoker NA - NA Social History Drugs/Alcohol: Social Info Question Answer Notes Alcohol Screen Did you have a drink containing alcohol in the past year? No Points 0 Interpretation Negative Tobacco Use: Social Info Question Answer Notes Tobacco Use/Smoking Patient is a nonsmoker Additional Details Category Social Info Options Details Miscellaneous: Marital status: Occupation: retired Section Notes: Nonsmoker; No sig alcohol Problems Problem Type SNOMED Code ICD Code Onset Dates Problem Status W/U Status Risk Notes Problem Screening for malignant neoplasm of colon (427980028) Encounter for screening for malignant neoplasm of colon (Z12.11) Active confirmed Problem History of adenomatous polyp of colon (798939146) History of adenomatous polyp of colon (Z86.010) Active confirmed Problem Preprocedural examination (254710010369759) Preprocedural examination (Z01.818) Active confirmed Problem Long-term current use of aspirin (751862614389969) Aspirin long-term use (Z79.82) Active confirmed Problem Diverticular disease of colon (184448941) Colon, diverticulosis (K57.30) Active confirmed Plan Of Treatment Pending Test Test Name Order Date Pathology 12/03/2020 Future Test Test Name Order Date COLONOSCOPY 05/23/2020 Insurance Providers Payer Name Payer Address Payer Phone Subscriber Number Group Number Insured Name Patient Relationship to Insured Coverage Start Date Coverage End Date [facility] [address] [place], [place] [id number] Self - patient is the insured Medical (General) History Medical History History ICD Code Hypertension Hyperlipidemia Polymyalgia rheumatica Summer 2019 GERD-on Pepcid Back pain Tubular adenoma removed in , then negative colonoscopies in 2004 and 2009 Denies [place],DM,CVA,Lung disease,renal dise ase Surgical History Surgery Date(Month/Year) Knee surgery - left knee Enlarged prostate
== END 2025-05-31 15:50 | disposition home or self-care (01) ==
LOC: HO.HMCHD 15:23
PROVIDERS: PCP Student in an Organized Health Care Education/Training Program; Visit Provider Student in an Organized Health Care Education/Training Program
DX: I10 Essential (primary) hypertension (principal); E78.00 Pure hypercholesterolemia, unspecified; M35.3 Polymyalgia rheumatica; R73.03 Prediabetes